=== PATIENT | male | born 1960 | race Caucasian/White ===

== ENCOUNTER 2017-05-16 11:23 | Emergency (ER) | payer MEDICAID, MEDICARE ==
[~2017-05-16] VITALS: Ht 170.2 cm; Wt 63.5 kg
[2017-05-16 11:23] VITALS: BP 178/116
[~2017-05-16 11:23] MED LIST: HYDR-3205 PO; ONDA4TAB5 PO
--- NOTE | 2017-05-16 11:30 | NUR ---
PATIENT SENT BY DIALYSIS TO ER, PT STATES "I NEED DIALYSIS", NAD NOTED, VSS, RESP EVEN AND UNLABORED, PT WAS PUT ON MONITOR, WAITING FOR MD DE LA TORRE.
[2017-05-16 12:03] LABS: BASOPHILS % (AUTO) 0.7 % (0.0-2.0); EOSINOPHILS # (AUTO) 0.1 /CMM (0.0-0.7); EOSINOPHILS % (AUTO) 2.1 % (0.0-6.0); HEMATOCRIT 41 % (39-51); HEMOGLOBIN 14.2 g/dL (13.5-17.5); LYMPHOCYTES # (AUTO) 1.5 /CMM (0.8-4.8); LYMPHOCYTES % (AUTO) 33.6 % (20.0-44.0); MEAN CORPUSCULAR HEMOGLOBIN 30 PG (26.0-33.0); MEAN CORPUSCULAR HGB CONC 35 g/dl (31.0-36.0); MEAN CORPUSCULAR VOLUME 87 fL (80-96); MONOCYTES # (AUTO) 0.3 /CMM (0.1-1.30); MONOCYTES % (AUTO) 6.4 % (2.0-12.0); NEUTROPHILS # (AUTO) 2.6 /CMM (1.8-8.9); NEUTROPHILS % (AUTO) 57.2 % (43.0-81.0); PLATELET COUNT (AUTO) 246 /CMM (150-450); RDW COEFFICIENT OF VARIATION 12.5 (11.5-15.0); WHITE BLOOD COUNT (AUTO) 4.5 K/uL (4.3-11.0)
--- NOTE | 2017-05-16 12:10 | NUR ---
BLOOD AND URINE SENT TO LAB
[2017-05-16 12:13] LABS: CALCIUM, SERUM 9.1 mg/dL (8.5-10.1); CREATININE 1.1 mg/dL (0.6-1.3); POTASSIUM 3.3 mmol/L (3.5-5.1)
[2017-05-16 12:19] LABS: BILIRUBIN,TOTAL 0.3 mg/dL (0.2-1.0)
[2017-05-16 12:46] LABS: APPEARANCE,URINE Clear (CLEAR); BILIRUBIN,URINE Negative (NEGATIVE); BLOOD, URINE Negative Ery/uL (NEGATIVE); COLOR,URINE Yellow (YELLOW); KETONES,URINE Trace (NEGATIVE); LEUKOCYTE ESTERASE ,URINE Negative (NEGATIVE); NITRITE, URINE Negative (NEGATIVE); PH,URINE 6.5 (5.0-8.0); PROTEIN,URINE Negative (NEGATIVE); UGLUCOSE Negative (NEGATIVE); UROBILINOGEN,URINE 0.2 EU/dL (0.2)
[2017-05-16 12:54] LABS: BACTERIA,URINE Few /HPF (None Seen); SQUAMOUS EPITHELIAL CELL,UR Few /HPF (None Seen)
[2017-05-16 12:58] LABS: RBC,URINE 0-2 /HPF (0-2); WBC,URINE 0-2 /HPF (0-3)
== END 2017-05-16 12:58 | disposition home or self-care (01) ==
LOC: ER 11:28
DX: Z00.00 Encounter for general adult medical examination without abnormal findings (principal); J44.9 Chronic obstructive pulmonary disease, unspecified; K40.90 Unilateral inguinal hernia, without obstruction or gangrene, not specified as recurrent; N18.9 Chronic kidney disease, unspecified; F32.9 Major depressive disorder, single episode, unspecified; F17.200 Nicotine dependence, unspecified, uncomplicated; Z99.2 Dependence on renal dialysis
CPT/HCPCS: 36415; 80053; 81001; 85025; 99284; A4606; 81000-TC; Z7610

== ENCOUNTER 2017-06-14 14:36 | Emergency (ER) | payer MEDICARE ==
[~2017-06-14] VITALS: Ht 170.2 cm; Wt 63.5 kg
[2017-06-14 14:45] VITALS: BP 145/91
== END 2017-06-14 15:11 | disposition home or self-care (01) ==
LOC: ER 14:39
DX: F32.9 Major depressive disorder, single episode, unspecified (principal); J44.9 Chronic obstructive pulmonary disease, unspecified; N18.9 Chronic kidney disease, unspecified; F17.200 Nicotine dependence, unspecified, uncomplicated
CPT/HCPCS: 99283; A4606; Z7610

== ENCOUNTER 2017-08-04 17:31 | Emergency (ER) | payer MEDICARE ==
[~2017-08-04] VITALS: Ht 170.2 cm; Wt 63.5 kg
[2017-08-04 17:31] VITALS: BP 147/87
== END 2017-08-04 18:24 | disposition home or self-care (01) ==
LOC: ER 17:32
DX: Z76.0 Encounter for issue of repeat prescription (principal); F32.9 Major depressive disorder, single episode, unspecified; J44.9 Chronic obstructive pulmonary disease, unspecified; N18.9 Chronic kidney disease, unspecified; F17.200 Nicotine dependence, unspecified, uncomplicated
CPT/HCPCS: 99283; A4606; Z7610

== ENCOUNTER 2017-08-09 11:58 | Emergency (ER) | payer MEDICARE ==
[~2017-08-09] VITALS: Ht 175.3 cm; Wt 74.8 kg
[2017-08-09 12:09] VITALS: BP 148/75
== END 2017-08-09 12:23 | disposition home or self-care (01) ==
LOC: ER 12:06
DX: F31.9 Bipolar disorder, unspecified (principal); Z76.0 Encounter for issue of repeat prescription; J44.9 Chronic obstructive pulmonary disease, unspecified; N18.9 Chronic kidney disease, unspecified; F17.200 Nicotine dependence, unspecified, uncomplicated
CPT/HCPCS: A4606; Z7610

== ENCOUNTER 2017-11-18 16:43 | Emergency (ER) | payer MEDICARE ==
[~2017-11-18] VITALS: Ht 165.1 cm; Wt 68.0 kg
[2017-11-18 16:43] VITALS: BP 119/82
== END 2017-11-18 17:25 | disposition home or self-care (01) ==
LOC: ER 16:46
DX: Z76.0 Encounter for issue of repeat prescription (principal); F32.9 Major depressive disorder, single episode, unspecified; N18.9 Chronic kidney disease, unspecified; J44.9 Chronic obstructive pulmonary disease, unspecified; F17.200 Nicotine dependence, unspecified, uncomplicated
CPT/HCPCS: 99283; A4606; Z7610

== ENCOUNTER 2018-03-13 12:36 | Emergency (ER) | payer MEDICARE, MEDICAID ==
[~2018-03-13] VITALS: Ht 168.9 cm; Wt 78.0 kg
[2018-03-13 12:47] VITALS: BP 154/98
== END 2018-03-13 12:55 | disposition home or self-care (01) ==
LOC: ER 12:37
DX: F41.9 Anxiety disorder, unspecified (principal); F31.9 Bipolar disorder, unspecified; J44.9 Chronic obstructive pulmonary disease, unspecified; N18.9 Chronic kidney disease, unspecified; F17.200 Nicotine dependence, unspecified, uncomplicated
CPT/HCPCS: A4606; Z7610

== ENCOUNTER 2018-04-16 07:55 | Emergency (ER) | payer MEDICARE, MEDICAID ==
[~2018-04-16] VITALS: Ht 170.2 cm; Wt 72.6 kg
[2018-04-16 07:55] VITALS: BP 150/74
[2018-04-16] MEDS ORDERED: LORAZEPAM 1 MG TABLET ONE (08:29)
[2018-04-16] MEDS ORDERED: LORAZEPAM 1 MG TABLET PO ONE (08:30)
== END 2018-04-16 09:44 | disposition home or self-care (01) ==
LOC: ER 07:57
DX: F41.9 Anxiety disorder, unspecified (principal); J44.9 Chronic obstructive pulmonary disease, unspecified; N18.9 Chronic kidney disease, unspecified; G89.29 Other chronic pain; M54.5 Low back pain; F32.9 Major depressive disorder, single episode, unspecified; M41.9 Scoliosis, unspecified; F17.200 Nicotine dependence, unspecified, uncomplicated; Z76.0 Encounter for issue of repeat prescription

== ENCOUNTER 2019-01-19 15:18 | Inpatient (IN) | payer BC, MEDICAID, MEDICARE, OTHER ==
[~2019-01-19] VITALS: Ht 170.2 cm; Wt 67.1 kg
--- NOTE | 2019-01-19 15:30 | NUR ---
C/O CHRONIC NECK PAIN, UNABLE TO FILL UP HIS NORCO PRESCRIPTION MAKING HIM FEEL DEPRESSED AND SUICIDAL, PLAN IS TO USE A KNIFE. SITTER AT BEDSIDE.
--- NOTE | 2019-01-19 15:31 | NUR ---
TO ER BED 7,1:1 SITTER,SUICIDE PRECAUTION.
--- NOTE | 2019-01-19 15:32 | NUR ---
CONTRABAND/BELONGINGS REMOVED,GOWNED,SECURITY CALLED FOR WANDING
--- NOTE | 2019-01-19 15:47 | NUR ---
SECURITY AT BEDSIDE FOR WANDING.
[2019-01-19 15:55] LABS: BASOPHILS # (AUTO) 0.1 /CMM (0.0-0.2); BASOPHILS % (AUTO) 0.9 % (0.0-2.0); EOSINOPHILS % (AUTO) 2.9 % (0.0-6.0); HEMATOCRIT 45 % (39-51); HEMOGLOBIN 15.5 g/dL (13.5-17.5); LYMPHOCYTES # (AUTO) 1.9 /CMM (0.8-4.8); LYMPHOCYTES % (AUTO) 25.1 % (20.0-44.0); MEAN CORPUSCULAR HGB CONC 34 g/dl (31.0-36.0); MEAN CORPUSCULAR VOLUME 88 fL (80-96); MONOCYTES # (AUTO) 0.5 /CMM (0.1-1.30); MONOCYTES % (AUTO) 6.1 % (2.0-12.0); NEUTROPHILS # (AUTO) 4.8 /CMM (1.8-8.9); PLATELET COUNT (AUTO) 264 /CMM (150-450); WHITE BLOOD COUNT (AUTO) 7.4 K/uL (4.3-11.0)
[2019-01-19 15:59] LABS: APPEARANCE,URINE Clear (CLEAR); BILIRUBIN,URINE Negative (NEGATIVE); BLOOD, URINE Negative Ery/uL (NEGATIVE); COLOR,URINE Yellow (YELLOW); KETONES,URINE Negative (NEGATIVE); LEUKOCYTE ESTERASE ,URINE Negative (NEGATIVE); NITRITE, URINE Negative (NEGATIVE); PH,URINE 5.5 (5.0-8.0); PROTEIN,URINE Negative (NEGATIVE); UGLUCOSE Negative (NEGATIVE); UROBILINOGEN,URINE 0.2 EU/dL (0.2)
[2019-01-19] MEDS ORDERED: GABA-534 PO (16:02)
[2019-01-19] MEDS ORDERED: SERT100T PO (16:02)
[2019-01-19] MEDS ORDERED: HYDR-4384 PO (16:02)
[2019-01-19 16:12] LABS: ALANINE AMINOTRANSFERASE 30 U/L (12-78); ALBUMIN 4.3 g/dL (3.4-5.0); ALCOHOL, BLOOD < 3 mg/dL (0-0); ALKALINE PHOSPHATASE 111 U/L (46-116); ASPARTATE AMINOTRANSFERASE 31 U/L (15-37); BILIRUBIN,DIRECT 0.1 mg/dL (0.0-0.2); BILIRUBIN,TOTAL 0.6 mg/dL (0.2-1.0); CALCIUM, SERUM 9.1 mg/dL (8.5-10.1); CARBON DIOXIDE 25 mmol/L (21-32); CHLORIDE 103 mmol/L (98-107); CREATININE 0.9 mg/dL (0.6-1.3); GLUCOSE 98 mg/dL (74-106); POTASSIUM 3.9 mmol/L (3.5-5.1); SODIUM SERUM 137 mmol/L (136-145); TOTAL PROTEIN, SERUM 7.4 g/dL (6.4-8.2); UREA NITROGEN, BLOOD 17 mg/dL (7-18)
[2019-01-19 16:19] LABS: SALICYLATE 2.7 mg/dL (2.8-20.0)
--- NOTE | 2019-01-19 17:12 | NUR ---
RAE PLAYGROUND AIDE AT BEDSIDE FOR EVAL.
--- NOTE | 2019-01-19 17:19 | NUR ---
REPORT GIVEN TO DAVID OROZCO FOR CORINNE.
--- NOTE | 2019-01-19 17:46 | NUR ---
PATIENT TRANSFERRED TO [facility]. IN STABLE CONDITION.
[2019-01-19] MEDS ORDERED: BLOOD SUGAR DIAGNOSTIC 1 EACH STRIP IN ONE (19:00)
[2019-01-19] MEDS ORDERED: MAGNESIUM HYDROXIDE 30 ML UDC PO PRN (19:00)
[2019-01-19] MEDS ORDERED: ACETAMINOPHEN 325 MG TABLET PO PRN (19:00)
[2019-01-19] MEDS: GABAPENTIN 300 MG CAPSULE PO SCH (19:28)
[2019-01-19] MEDS: HYDROCODONE/APAP 5/325MG 1 EACH TABLET PO PRN (19:29)
--- NOTE | 2019-01-19 20:00 | NUR ---
GPS CABIN SERVICE AGENT NOTES: ADMITTED A 58YO MALE FROM HOME ON 5150 HOLD FOR DANGER TO SELF. PER HOLD PATIENT HAS BEEN SUICIDAL THE PAST TWO-THREE DAYS. HE HAS HISTORY OF DEPRESSION AND ADMITS TO BEING SEVERELY DEPRESSED. IT IS ALSO STATED IN THE HOLD THAT THE PATIENT HAS A LOT OF HEAD, NECK AND BACK PAIN. HE ALSO REVEALED AN OLD SCAR ON HIS LEFT WRIST FROM A PREVIOUS SUICIDE ATTEMPT. PATIENT CAME INTO THE UNIT DURING DAY SHIFT ABOUT SHIFT CHANGE TIME. UPON FACE TO FACE ASSESSMENT, PATIENT PRESENTS ALERT AND ORIENTED X4, AMBULATORY, ADMITS TO FEELING DEPRESSED, HE IS ALSO NOTED TO BE ANXIOUS EVIDENCE BY THE SHAKING OF HIS HANDS AND NOT BEING ABLE TO STAY STILL. PATIENT HAS COMPLAINS OF PAIN ON HIS UPPER AND LOWER BACK.- PER PATIENT HE HAS HAD THIS PAIN FOR A LONG TIME ALREADY. MEDICATED PATIENT WITH NORCO ORDERED. AN HOUR AFTER PATIENT REQUESTED FOR HIS ATIVAN MEDICATION-GIVEN ORDERED. REALITY ORIENTATION DONE. PATIENT ORIENTED TO STAFF, UNIT POLICIES, DOCTORS AND CARE PLAN. Q15 MIN CHECKS INITIATED. PATIENT DENIES ANY SUICIDAL IDEATIONS, THOUGHTS OR PLANS THIS TIME. HE DENIES AUDITORY AND VISUAL HALLUCINATIONS. PATIENT AGREED TO CONTRACT FOR SAFETY. HE WAS FURTHER ENCOURAGED TO VERBALIZE ANY FEELINGS OR CONCERNS, OR ANY THOUGHTS OF SELF HARM TO PULVERIZING AND SIFTING OPERATOR AT ANYTIME. SKIN AND BODY ASSESSMENT DONE-,PATIENT IS CLEAR, NO ACTIVE WOUNDS NOTED THIS TIME. PROVIDED PATIENT WITH TOILETRIES AND CARE PACKET.PATIENTS RIGHTS HANDBOOK PROVIDED. GUIDE TO PRESCRIPTION MEDICATIONS HANDBOOK PROVIDED. PATIENT WAS SEEN BY DIAMANTE SANTOS IN THE UNIT. DR. PATEL IS THE PSYCH DR FOR THIS PATIENT. WILL MONITOR PATIENT FOR MOD, SAFETY AND BEHAVIOR.
[2019-01-19] MEDS: LORAZEPAM 0.5 MG TABLET PO PRN (20:35)
--- NOTE | 2019-01-19 20:36 | NUR ---
GPS RN NOTES: PATIENT COMPLAINED OF BEING ANXIOUS AND NERVOUS AT THIS TIME. NOTED THAT PATIENT CANNOT REALLY STAY STILL. ATIVAN 1 MG GIVEN ORALLY ORDERED. BP CHECKED 121/80 HR-70. WILL CONTINUE TO MONITOR PATIENT.
[2019-01-19 20:42] VITALS: BP 130/94
[2019-01-19] MEDS: TEMAZEPAM 7.5 MG CAPSULE PO PRN (21:35)
[2019-01-20] MEDS: HYDROCODONE/APAP 5/325MG 1 EACH TABLET PO PRN ×3 (01:20→17:59)
--- NOTE | 2019-01-20 01:21 | NUR ---
RN NOTES COMPLAINED OF TERRIBLE HEADACHE - NORCO 5/325MG PO GIVEN ORDERED V/S STABLE
[2019-01-20] MEDS: LORAZEPAM 0.5 MG TABLET PO PRN ×3 (02:40→16:51)
[2019-01-20 07:36] LABS: ALBUMIN 3.5 g/dL (3.4-5.0); BILIRUBIN,TOTAL 0.4 mg/dL (0.2-1.0); CALCIUM, SERUM 8.3 mg/dL (8.5-10.1); CREATININE 0.9 mg/dL (0.6-1.3); POTASSIUM 3.9 mmol/L (3.5-5.1); TOTAL PROTEIN, SERUM 6.3 g/dL (6.4-8.2)
[2019-01-20 07:37] LABS: CHOLESTEROL 130 mg/dL (<200); HDL CHOLESTEROL 29 mg/dL (40-60); LDL 84 mg/dL (0-99); TRIGLYCERIDES 99 mg/dL (30-150)
[2019-01-20 08:00] VITALS: BP 124/72
[2019-01-20] MEDS: GABAPENTIN 300 MG CAPSULE PO SCH ×2 (08:43→16:51)
[2019-01-20] MEDS ORDERED: Medication Not On Formulary EA (Sertraline Hcl (Zoloft) 100 MG) PO SCH (09:00)
--- NOTE | 2019-01-20 10:05 | NUR ---
RN NOTE: PATIENT C/O ANXIETY, PRN ATIVAN GIVEN.
[2019-01-20] MEDS: oxyCODONE/APAP (5/325 MG) 1 UDTAB TABLET PO PRN (12:47)
--- NOTE | 2019-01-20 12:52 | NUR ---
RN NOTE: PATIENT C/O 8/10 PAIN; PRN PERCOCET GIVEN.
[2019-01-20 16:00] VITALS: BP 111/82
--- NOTE | 2019-01-20 16:52 | NUR ---
RN NOTE: PATIENT C/O ANXIETY. PRN ATIVAN GIVEN.
--- NOTE | 2019-01-20 17:59 | NUR ---
RN NOTE: PATIENT C/O 8/10 PAIN. PRN NORCO GIVEN.
--- NOTE | 2019-01-20 19:25 | NUR ---
GPS/RN OPENING NOTES RECEIVED PATIENT I BED, RESTING COMFORTABLY BUT ABLE TO AROUSE. AND CAN AMBULATE AND VERBALIZE NEEDS, PARTICIPATIVE AND ABLE TO COMMUNICATE, REPORTED AND REQUESTED MEDICATION FOR SLEEP, PREFER TO TAKE IT EARLIER AFTER HAVING SOME ORANGE JUICE. CALM BUT WITHRAWN . RECEIVED ENDORSEMENT FROM AM RN FOR CORINNE.
[2019-01-20 20:00] VITALS: BP 119/80
[2019-01-20 20:04] VITALS: BP 119/80
[2019-01-20] MEDS: TEMAZEPAM 7.5 MG CAPSULE PO PRN (20:15)
--- NOTE | 2019-01-20 20:59 | NUR ---
GPS/RN NOTES DR PATEL AT BEDSIDE, MAKING ROUNDS AND ATTENDING TO PATIENT AT THIS TIME.
--- NOTE | 2019-01-20 21:38 | NUR ---
GPS/RN NOTES PATIENT WAS SEEN BY DR PATEL AND REPORTED THAT HE WANT MEDICATION TO HELP HIM SLEEP. RESTORIL MAY NOT BE EFFECTIVE,.PATIENT AWAKE AND WILL CONTACT PHARMACY FOR VERIFICATION OF ORDER.
[2019-01-20] MEDS: TRAZODONE 50 MG TABLET PO SCH (21:52)
[2019-01-21 08:00] VITALS: BP 126/82
[2019-01-21] MEDS: GABAPENTIN 300 MG CAPSULE PO SCH ×2 (08:11→16:39)
[2019-01-21] MEDS: SERTRALINE HCL 50 MG TABLET PO SCH (08:11)
[2019-01-21] MEDS: oxyCODONE/APAP (5/325 MG) 1 UDTAB TABLET PO PRN (08:40)
--- NOTE | 2019-01-21 09:40 | NUR ---
INITIAL DISCHARGE NOTE: Patient is currently homeless and wishes to be discharged to a board and care in [place]. Pt was unable to provide SW with the contact information to the board and care but stated that he would look for it. SW will help form a safe and proper discharge in collaboration with MD.
[2019-01-21] MEDS: LORAZEPAM 0.5 MG TABLET PO PRN ×2 (10:41→18:01)
[2019-01-21 16:00] VITALS: BP 119/94
[2019-01-21] MEDS: HYDROCODONE/APAP 5/325MG 1 EACH TABLET PO PRN (16:39)
--- NOTE | 2019-01-21 17:32 | NUR ---
GPS NOTE THE PATIENT DENIES SI/HI AND DENIES VISUAL/AUDITORY HALLUCINATIONS. IN ROOM AIR AND DENIES SOB. RESPIRATION REGULAR AND UNLABORED. DENIES PAIN AT THIS TIME. THE PATIENT IS MEDICATION COMPLIANT. SAFETY CHECKS DONE. WILL CONTINUE TO MONITOR THE PATIENT.
--- NOTE | 2019-01-21 19:30 | NUR ---
GPS RN OPENING NOTES RECEIVED PATIENT IN BED, RESTING COMFORTABLY BUT ABLE TO AROUSE. A/O X3.ABLE TO AMBULATE AND VERBALIZE NEEDS,, REPORTED AND REQUESTED MEDICATION FOR SLEEP, PREFER TO TAKE IT EARLIER. CALM BUT WITHDRAWN. RESPIRATIONS ARE EVEN AND UNLABORED, NO SOB NOTED, DENIES PAIN AT THIS TIME. NO APPARENT DISTRESS. ID BAND ON, ASSESSED ENVIRONMENT FOR CONTRABAND AND SAFETY. WILL CONTINUE TO MONITOR Q15 MINS FOR SAFETY AND BEHAVIOR
[2019-01-21] MEDS: TEMAZEPAM 7.5 MG CAPSULE PO PRN (20:17)
[2019-01-21 20:51] VITALS: BP 117/66
[2019-01-21] MEDS: TRAZODONE 50 MG TABLET PO SCH (21:42)
[2019-01-22 08:00] VITALS: BP 108/68
[2019-01-22] MEDS: GABAPENTIN 300 MG CAPSULE PO SCH ×2 (08:23→16:46)
[2019-01-22] MEDS: SERTRALINE HCL 50 MG TABLET PO SCH (08:23)
[2019-01-22] MEDS: oxyCODONE/APAP (5/325 MG) 1 UDTAB TABLET PO PRN (08:24)
[2019-01-22] MEDS: LORAZEPAM 0.5 MG TABLET PO PRN ×2 (11:19→19:51)
[2019-01-22 16:00] VITALS: BP 133/91
[2019-01-22] MEDS: HYDROCODONE/APAP 5/325MG 1 EACH TABLET PO PRN (16:46)
[2019-01-22 20:03] VITALS: BP 106/69
[2019-01-22] MEDS: TRAZODONE 50 MG TABLET PO SCH (21:08)
[2019-01-23 08:00] VITALS: BP 106/75
[2019-01-23] MEDS: SERTRALINE HCL 50 MG TABLET PO SCH (08:18)
[2019-01-23] MEDS: GABAPENTIN 300 MG CAPSULE PO SCH ×2 (08:18→16:47)
[2019-01-23] MEDS: oxyCODONE/APAP (5/325 MG) 1 UDTAB TABLET PO PRN ×2 (08:20→21:19)
--- NOTE | 2019-01-23 11:27 | NUR ---
PATIENT ASKING TO INCREASE ATIVAN DOSE. SAYS HE HAS BEEN THINKING ABOUT HURTING HIMSELF IN THE PAST. DOES NOT WANT TO HURT HIMSELF AT THIS TIME. PATIENT UP TO GROUP FREQUENTLY INTERACTING AND ASKING FOR NEEDED MEDICATIONS, WHAT TIME HE IS ABLE TO GET THEM. SITA Fuentes RN
--- NOTE | 2019-01-23 11:45 | NUR ---
Patient says he feels most down about his estranged that he says lives in [place]. He says she is an registered nurse. Patient requesting further evaluation and treatment for his depression and anxiety. Does not want to leave now at this time. Says maybe when he leaves he will go to [place] to try to find his estranged . Sukhi Fuentes RN
[2019-01-23] MEDS: LORAZEPAM 0.5 MG TABLET PO PRN (12:14)
[2019-01-23 16:00] VITALS: BP 102/67
[2019-01-23 19:51] VITALS: BP 119/80
[2019-01-23] MEDS: TRAZODONE 50 MG TABLET PO SCH (21:16)
[2019-01-23] MEDS: TEMAZEPAM 7.5 MG CAPSULE PO PRN (21:18)
[2019-01-24 08:00] VITALS: BP 110/78
[2019-01-24] MEDS: SERTRALINE HCL 50 MG TABLET PO SCH (08:13)
[2019-01-24] MEDS: GABAPENTIN 300 MG CAPSULE PO SCH ×2 (08:13→17:22)
[2019-01-24] MEDS: HYDROCODONE/APAP 5/325MG 1 EACH TABLET PO PRN (08:14)
--- NOTE | 2019-01-24 08:17 | NUR ---
RN NOTE- PT C/O BACK PAIN 8-10. PRN NORCO GIVEN
--- NOTE | 2019-01-24 09:06 | NUR ---
UR NOTE: JUSTO FAXED CLINICALS TO [facility] AND TO [facility] [phone].
[2019-01-24] MEDS: oxyCODONE/APAP (5/325 MG) 1 UDTAB TABLET PO PRN (11:35)
--- NOTE | 2019-01-24 11:35 | NUR ---
RN NOTE- PT W C/O PAIN 9-10 TO LOWER BACK. MEDICATED W PRN OXYCODONE AT THIS TIME.
--- NOTE | 2019-01-24 11:55 | NUR ---
UR NOTE: JUSTO 5150/5250 HOLD to MELE TELETYPE ADJUSTER at [facility] [phone] ext: [phone] FAX: [phone].
--- NOTE | 2019-01-24 15:00 | NUR ---
GROUP NOTE: SW encouraged pt to participate in group on this present day discussing "gaining insight." Pt stated that he was not feeling well and that he did not want to participate in a group setting. Pt stated that he was still having thoughts of suicide. SW monitored thoughts of suicide and pt reported that he did not have a plan but that he was constantly thinking that his life would be better if he was due to his current living situation. SW informed him that she would be informing psychiatrist so that his depression medication can be adjusted.
[2019-01-24] MEDS: LORAZEPAM 0.5 MG TABLET PO PRN (15:17)
--- NOTE | 2019-01-24 15:19 | NUR ---
RN NOTE- PT W C/O ANXIETY. RESTLESSNESS. ATIVAN PRN GIVEN.
[2019-01-24 16:00] VITALS: BP 103/69
[2019-01-24 20:16] VITALS: BP 112/69
[2019-01-24] MEDS: TRAZODONE 50 MG TABLET PO SCH (21:05)
--- NOTE | 2019-01-24 23:28 | NUR ---
pt recieved laying in bed .pt is depressed and is asks for some pain med constantly.gait is stable . pt will request for pain medication later .pt is on 5250 14days hold
[2019-01-25 08:00] VITALS: BP 120/86
--- NOTE | 2019-01-25 08:27 | NUR ---
UR NOTE: JUSTO left a clinical review via voicemail with MELE MOLDED RUBBER GOODS CUTTER at [facility] [phone] ext: [phone]
[2019-01-25] MEDS: GABAPENTIN 300 MG CAPSULE PO SCH ×2 (08:35→16:16)
[2019-01-25] MEDS: SERTRALINE HCL 50 MG TABLET PO SCH (08:35)
[2019-01-25] MEDS: oxyCODONE/APAP (5/325 MG) 1 UDTAB TABLET PO PRN ×2 (09:15→18:01)
[2019-01-25] MEDS: LORAZEPAM 0.5 MG TABLET PO PRN (10:43)
--- NOTE | 2019-01-25 14:50 | NUR ---
GROUP NOTE: SW encouraged pt to participate in group on this present day discussing "family support." Pt reported that he feels sad every time he thinks about his family due to him not having a good relationship with his brother and his brother living so far away and him not being able to count on him for support. Pt isolates in his room, SW encouraged pt to go out to the activity room and pt stated that he wanted to stay in his room.
--- NOTE | 2019-01-25 15:02 | NUR ---
INTERVENTION: SW discussed pts discharge plan, SW explained to pt that he is unable to be discharged to a SNF due to his insurance not covering SNF placement. SW informed pt that his two options are board and care or if he is able to provide SW with the address he was suppose to be moving to in [place]. Pt stated that he needs his phone to pull up the address to the board and care he has already placed a deposit to. SW stated that once she has discharge order from psychiatrist she will assist him with locating the address on his phone.
[2019-01-25 16:00] VITALS: BP 131/78
[2019-01-25 20:00] VITALS: BP 126/78
[2019-01-25 20:04] VITALS: BP 126/78
[2019-01-25] MEDS: TRAZODONE 50 MG TABLET PO SCH (21:05)
[2019-01-25] MEDS: TEMAZEPAM 7.5 MG CAPSULE PO PRN (21:44)
--- NOTE | 2019-01-25 21:45 | NUR ---
GPS RN notes Administered Restoril 7.5 mg/2 caps/PO as ordered for sleeping per Pt request. Instructed to call. Safety precautions is maintained. Will continue to monitor Q 15 mins checks.
[2019-01-26 08:00] VITALS: BP 110/79
[2019-01-26] MEDS: GABAPENTIN 300 MG CAPSULE PO SCH ×2 (08:43→16:34)
[2019-01-26] MEDS: SERTRALINE HCL 50 MG TABLET PO SCH (08:43)
[2019-01-26] MEDS: HYDROCODONE/APAP 5/325MG 1 EACH TABLET PO PRN ×2 (08:48→20:01)
--- NOTE | 2019-01-26 08:51 | NUR ---
RN NOTE: PATIENT C/O BACK AND NECK PAIN 10/20. ADMINISTERED PRN NORCO.
--- NOTE | 2019-01-26 10:49 | NUR ---
UR NOTE: JUSTO FAXED CLINICALS TO [facility] AND TO [facility] [phone].
[2019-01-26] MEDS: oxyCODONE/APAP (5/325 MG) 1 UDTAB TABLET PO PRN (13:22)
[2019-01-26 16:00] VITALS: BP 121/88
[2019-01-26 20:08] VITALS: BP 119/85
[2019-01-26] MEDS: TRAZODONE 50 MG TABLET PO SCH (21:18)
[2019-01-26] MEDS: TEMAZEPAM 7.5 MG CAPSULE PO PRN (23:36)
[2019-01-27] MEDS: HYDROCODONE/APAP 5/325MG 1 EACH TABLET PO PRN ×2 (07:51→16:36)
[2019-01-27 08:00] VITALS: BP 112/76
[2019-01-27] MEDS: GABAPENTIN 300 MG CAPSULE PO SCH ×2 (08:00→16:30)
[2019-01-27] MEDS: SERTRALINE HCL 50 MG TABLET PO SCH (08:42)
[2019-01-27] MEDS: MAG HYDROX/AL HYDROX/SIMETH 30 ML UDC PO PRN (09:26)
--- NOTE | 2019-01-27 09:27 | NUR ---
RN NOTE: PATIENT C/O INDIGESTION. ADMINISTERED PRN MAALOX.
--- NOTE | 2019-01-27 10:58 | NUR ---
UR NOTE: SW received a call from Shelbi aftercare coordinator at [facility] [phone] ext:[phone] stating that she will be providing pt with aftercare appointments once he is discharged.
--- NOTE | 2019-01-27 11:43 | NUR ---
INTERVENTION: SW discussed pts discharge plan, pt stated that he is unsure if he is able to return to the board and care in [place] and stated that he is still not stable for discharge. SW offered pt Independent living placement options and pt stated that he would be interested however he does not have access to his social security income as he states he has a payee and he does not know his contact info. SW will continue to plan for a safe and proper discharge.
[2019-01-27] MEDS: LORAZEPAM 0.5 MG TABLET PO PRN (12:27)
--- NOTE | 2019-01-27 12:29 | NUR ---
RN NOTE: PATIENT C/O FEELING ANXIOUS. ADMINISTERED PRN ATIVAN.
[2019-01-27] MEDS: oxyCODONE/APAP (5/325 MG) 1 UDTAB TABLET PO PRN (14:09)
--- NOTE | 2019-01-27 14:09 | NUR ---
RN NOTE: PATIENT C/O 8/10 BACK PAIN. ADMINISTERED PRN PERCOCET.
--- NOTE | 2019-01-27 15:45 | NUR ---
SW contacted [facility] ([facility]) [address] [address] where pt was discharged from on 01/12/19 and received collateral information. Per Larry marketing officer pt was discharged to [place] [address] .
[2019-01-27 16:00] VITALS: BP 132/66
--- NOTE | 2019-01-27 16:30 | NUR ---
JUSTO spoke with Mark, sharepoint administrator at [address] who confirmed pt is a resident at the facility and is able to return back. Mark stated that he had been looking for pt as he left and did not know where he had gone to. JUSTO informed him that pt will be discharged on Thursday01/29/19 via public transportation and Mark agreed.
[2019-01-27 20:33] VITALS: BP 92/63
[2019-01-27] MEDS: TRAZODONE 50 MG TABLET PO SCH (21:15)
[2019-01-28] MEDS: HYDROCODONE/APAP 5/325MG 1 EACH TABLET PO PRN ×3 (06:55→21:16)
--- NOTE | 2019-01-28 06:56 | NUR ---
RN NOTES PATIENT C/O PAIN ON LOWER BACK, 11/20. REQUESTED FOR PAIN MEDICATION. NORCO 5/325 GIVEN ORDERED
[2019-01-28 08:00] VITALS: BP 112/77
[2019-01-28] MEDS: SERTRALINE HCL 50 MG TABLET PO SCH (09:20)
[2019-01-28] MEDS: GABAPENTIN 300 MG CAPSULE PO SCH ×2 (09:23→16:58)
[2019-01-28] MEDS: MAG HYDROX/AL HYDROX/SIMETH 30 ML UDC PO PRN (09:39)
--- NOTE | 2019-01-28 09:40 | NUR ---
GPS/RN-NOTES PATIENT REQUESTING MAALOX FOR INDIGESTION. MAALOX 30 ML GIVEN PRN ORDER.
[2019-01-28] MEDS: LORAZEPAM 0.5 MG TABLET PO PRN (10:38)
--- NOTE | 2019-01-28 10:39 | NUR ---
GPS/RN-NOTES PATIENT REQUESTING ATIVAN. STATED" I'M VERY ANXIOUS I NEED MY ATIVAN". ATIVAN 1MG P.O GIVEN PRN ORDER. WILL CONT. MONITORING FOR SAFETY AND BEHAVIOR.
--- NOTE | 2019-01-28 13:35 | NUR ---
UR NOTE: JUSTO contacted Shelbi aftercare coordinator at [facility] [phone] ext:[phone] and inform her pt will be discharged tomorrow Thursday01/29/19. Shelbi stated she will work on aftercare appointments for pt and call JUSTO back with information.
--- NOTE | 2019-01-28 13:45 | NUR ---
DISCHARGE NOTE: Pt will be discharged on Thursday01/29/19 at 11:00am via public transportation (TAP CARD) to [address] [facility] [address] [facility] . Pt has no family to notify. Pts mood is euthymic with congruent affect. Pt denied suicidal/homicidal ideation and denied visual/auditory hallucinations. Pt will follow up with [facility] Address: [address] [place] [address] on Thursday01/31/19 before 4:00pm and pt will also follow up with Materials Management Manager: Dr. Dr. Kwadwo Roa Address: [address], [place] [address] . The multidisciplinary exit care form was done, printed, signed, and given to the patient. Addendum: 01/28/19 at 1425 by JUANA KEMP JUSTO received a call from Shelbi aftercare coordinator at [facility] [phone] ext:[phone] providing pt with aftercare appointments. Pt has a follow up appointment on 02/04/19 at 8:30am with Kaylie Chen LCSW and a follow up appointment on 02/25/19 at 8:30am with Al Richards NP [address] [facility] [address] [facility] [address] .
--- NOTE | 2019-01-28 15:06 | NUR ---
GPS/RN-NOTES PATIENT C/O 9/10 LOWER BACK PAIN, NORCO 5/325MG P.O GIVEN PRN ORDER. WILL CONT. MONITORING FOR SAFETY.
--- NOTE | 2019-01-28 15:14 | NUR ---
GROUP NOTE: SW prompted pt to attend group on 01/28/19 at 2:30pm discussing goal setting for while they are in the hospital and after discharge, but pt was sleeping and not easily aroused.
[2019-01-28 16:00] VITALS: BP 107/76
[2019-01-28 20:00] VITALS: BP 116/66
[2019-01-28 20:41] VITALS: BP 116/66
[2019-01-28] MEDS: TRAZODONE 50 MG TABLET PO SCH (21:03)
[2019-01-28] MEDS: TEMAZEPAM 7.5 MG CAPSULE PO PRN (21:03)
[2019-01-29] MEDS: HYDROCODONE/APAP 5/325MG 1 EACH TABLET PO PRN (04:56)
[2019-01-29 08:00] VITALS: BP 130/86
[2019-01-29] MEDS: SERTRALINE HCL 50 MG TABLET PO SCH (08:02)
[2019-01-29] MEDS: GABAPENTIN 300 MG CAPSULE PO SCH (08:02)
[2019-01-29] MEDS: LORAZEPAM 0.5 MG TABLET PO PRN (08:02)
--- NOTE | 2019-01-29 08:07 | NUR ---
RN NOTE: ATIVAN ADMINISTERED FOR ANXIETY
[2019-01-29] MEDS: MAG HYDROX/AL HYDROX/SIMETH 30 ML UDC PO PRN (08:08)
--- NOTE | 2019-01-29 08:09 | NUR ---
GPS RN NOTE: MAALOX REQUESTED AND ADMINISTERED FOR INDIGESTION
--- NOTE | 2019-01-29 09:05 | NUR ---
DR. PATEL GAVE AN ORDER TO D/C HOLD AND D/C TO [facility] AND TO FOLLOW UP WITH PSYCH AND MEDICAL DOCTORS. SPOKE TO TASHI BREWER OVER THE BOARD AND CARE AND SAID THEY WILL ACCEPT HIM TODAY AND HE WILL CALL AN UBER FOR HIS TRANSPORTATION. PER PT. NO FAMILY TO NOTIFY FOR HIS DISCHARGE.
--- NOTE | 2019-01-29 10:51 | NUR ---
PT. IS FOR DISCHARGE TO [place] [address] [facility]. PRESCRIPTIONS FAXED TO [facility] AT [phone].
--- NOTE | 2019-01-29 12:27 | NUR ---
GPS/RN PT WAS ACCOMPANIED BY FLATTENING PRESS OPERATOR TO THE MAIN LOBBY AND LEFT VIA UBER ARRANGED BY THE FACILITY. NO SI OR HI AT THE TIME OF DISCHARGE. PT IS AMBULATORY, VSS, NO APPARENT DISTRESS NOTED. PROPERTY RETURNED , ID BAND REMOVED, EXIT CARE, PRESCRIPTIONS AND TEACHING PROVIDED AND UNDERSTOOD. PRESCRIPTIONS FAXED TO THE PHARMACY WELL. Addendum: 01/29/19 at 1240 by VICKIE LEYVA RN THE PHON E # OF [facility] [employer]PORTER IS [phone]
== END 2019-01-29 12:25 | disposition home or self-care (01) | DRG 885 ==
LOC: ER 15:26 → GPS 17:49
PROVIDERS: ADMIT Psychiatry & Neurology Psychiatry; ATTEND Nurse Practitioner Acute Care
DX: F33.9 Major depressive disorder, recurrent, unspecified (principal); R45.851 Suicidal ideations; F29 Unspecified psychosis not due to a substance or known physiological condition; J44.9 Chronic obstructive pulmonary disease, unspecified; F17.210 Nicotine dependence, cigarettes, uncomplicated; G89.4 Chronic pain syndrome; M41.9 Scoliosis, unspecified; F41.9 Anxiety disorder, unspecified; G62.9 Polyneuropathy, unspecified; M54.5 Low back pain
CPT/HCPCS: 36415; 80048-TC; 80053-TC; 80061-TC; 80076-TC; 80305; 81000-TC; 82962-TC; 85025-TC; 87081-TC; G0480

== ENCOUNTER 2019-05-05 12:19 | Inpatient (IN) | payer OTHER ==
[~2019-05-05] VITALS: Ht 182.9 cm; Wt 70.8 kg
[~2019-05-05 12:19] MED LIST changes: +GABA-534 PO; -HYDR-3205 PO; +HYDR-4384 PO; -ONDA4TAB5 PO; +SERT100T PO
--- NOTE | 2019-05-05 12:35 | NUR ---
PT CAME INTO THE ED C/O SI W/ NO SPECIFIC PLAN. SAFETY PRECAUTIONS IMPLEMENTED. SITTER AT BEDSIDE. NO ACUTE DISTRESS NOTED. CONNECTED TO THE CASUALTY CLAIM ADJUSTER AND POX
[2019-05-05 13:11] LABS: BASOPHILS % (AUTO) 0.8 % (0.0-2.0); EOSINOPHILS % (AUTO) 2.2 % (0.0-6.0); HEMATOCRIT 41 % (39-51); HEMOGLOBIN 14.1 g/dL (13.5-17.5); LYMPHOCYTES # (AUTO) 2.2 /CMM (0.8-4.8); LYMPHOCYTES % (AUTO) 42.1 % (20.0-44.0); MEAN CORPUSCULAR HGB CONC 35 g/dl (31.0-36.0); MEAN CORPUSCULAR VOLUME 88 fL (80-96); MONOCYTES # (AUTO) 0.3 /CMM (0.1-1.30); MONOCYTES % (AUTO) 6.2 % (2.0-12.0); NEUTROPHILS # (AUTO) 2.5 /CMM (1.8-8.9); NEUTROPHILS % (AUTO) 48.7 % (43.0-81.0); PLATELET COUNT (AUTO) 285 /CMM (150-450); RED BLOOD CELL COUNT(AUTO) 4.65 MIL/uL (4.5-6.0); WHITE BLOOD COUNT (AUTO) 5.2 K/uL (4.3-11.0)
[2019-05-05 13:18] LABS: CALCIUM, SERUM 9.4 mg/dL (8.5-10.1); CARBON DIOXIDE 32 mmol/L (21-32); CHLORIDE 106 mmol/L (98-107); CREATININE 1.1 mg/dL (0.6-1.3); GLUCOSE 109 mg/dL (74-106); SODIUM SERUM 141 mmol/L (136-145); UREA NITROGEN, BLOOD 12 mg/dL (7-18)
[2019-05-05 13:23] LABS: ACETAMINOPHEN 0 ug/ml (10-30); ALANINE AMINOTRANSFERASE 26 U/L (12-78); ALBUMIN 3.7 g/dL (3.4-5.0); ALCOHOL, BLOOD < 3 mg/dL (0-0); ALKALINE PHOSPHATASE 94 U/L (46-116); ASPARTATE AMINOTRANSFERASE 29 U/L (15-37); BILIRUBIN,DIRECT 0.1 mg/dL (0.0-0.2); BILIRUBIN,TOTAL 0.7 mg/dL (0.2-1.0); SALICYLATE 0.5 mg/dL (2.8-20.0); TOTAL PROTEIN, SERUM 6.5 g/dL (6.4-8.2)
--- NOTE | 2019-05-05 14:50 | NUR ---
Patient is resting comfortably in bed with eyes closed. Easily aroused. VSS
[2019-05-05 15:07] LABS: APPEARANCE,URINE Cloudy (CLEAR); BILIRUBIN,URINE SMALL (NEGATIVE); BLOOD, URINE Negative Ery/uL (NEGATIVE); COLOR,URINE Yellow (YELLOW); KETONES,URINE Trace (NEGATIVE); LEUKOCYTE ESTERASE ,URINE Negative (NEGATIVE); NITRITE, URINE Negative (NEGATIVE); PROTEIN,URINE 30 mg/dl (NEGATIVE); UGLUCOSE Negative (NEGATIVE); UROBILINOGEN,URINE 0.2 EU/dL (0.2)
[2019-05-05 15:24] LABS: BACTERIA,URINE Few /HPF (None Seen); RBC,URINE 0-2 /HPF (0-2); SQUAMOUS EPITHELIAL CELL,UR Few /HPF (None Seen); WBC,URINE 0-2 /HPF (0-3)
[2019-05-05 15:25] LABS: MUCUS,URINE Many /LPF (None Seen)
--- NOTE | 2019-05-05 16:12 | NUR ---
CALLED [facility] [phone] LEFT [facility] TO CALL US.
--- NOTE | 2019-05-05 16:17 | NUR ---
GOT BED 212-A
--- NOTE | 2019-05-05 16:24 | NUR ---
DANA LIU [phone]
[2019-05-05] MEDS ORDERED: ATEN50TA PO (18:00)
[2019-05-05] MEDS ORDERED: DEXT20TA6 PO (18:00)
--- NOTE | 2019-05-05 20:22 | NUR ---
CALLED TO GIVE REPORT, NO ANSWER
--- NOTE | 2019-05-05 20:37 | NUR ---
REPORT GIVEN TO ERNESTO LLAMAS
--- NOTE | 2019-05-05 21:15 | NUR ---
GPS LINEN TECH NOTES: RECEIVED 58 Y/O MALE PATIENT FROM ER DEPARTMENT. PATIENT ARRIVED ON THIS UNIT AT 2115 ACCOMPANIED BY A NURSE . PATIENT ADMITTED ON A 5150 HOLD FOR DTS. PER HOLD PATIENT ARRIVED TO [facility] GPS UNIT FOR PSYCHIATRIC EVALUATION DUE TO DEPRESSION AND SUICIDAL IDEATION WITH PLAN TO CUT WRIST. UPON FACE TO FACE ASSESSMENT PATIENT NOTED FLAT AFFECT, DEPRESSED, LOW ENERGY, COMPLAINT, AND COOPERATIVE . PT DENIES S/I AND H/I AT THIS TIME. PATIENT IS CURRENTLY LYING IN BED AWAKE. NO S/S OF RESP DISTRESS. BREATHING EVEN AND UNLABORED. PT IS ALERT AND ORIENTED X 4 ON ROOM AIR. PATIENT HAS NO NEEDS AT THIS TIME. PATIENT SIGNED PROPER PAPERWORK. PATIENT ADVISED OF HIS HOLD AND PATIENT RIGHTS HANDBOOK GIVEN. PATIENTS BELONGINGS WERE INVENTORIED AND CHECKED FOR CONTRABAND. PATIENT ADVANCED DIRECTIVE PREFERENCES AND NECESSARY PAPERWORK COMPLETED. PATIENT SKIN ASSESSMENT COMPLETED WITH SKIN NOTED INTACT. PICTURE TAKEN OF PT FOR IDENTIFICATION PUT IN CHART. PT ORIENTED TO ROOM, FLOOR, AND STAFF WITH ALL QUESTIONS ANSWERED. PATIENT EDUCATED ON THE USE OF CALL [place]. PATIENTS SIDERAILS ARE UP X2 FOR SAFETY. INITIAL BLOOD SUGAR CHECK DONE. MRSA SWAB DONE IN THE ER DEPARTMENT. PATIENTS BED LOCKED, LOW AND I WILL CONTINUE TO MONITOR THIS PATIENT Q15 MIN WITH THE HELP OF THE STAFF TO MAINTAIN SAFETY.
[2019-05-05] MEDS ORDERED: ACETAMINOPHEN 325 MG TABLET PO PRN (22:30)
[2019-05-05] MEDS ORDERED: MAGNESIUM HYDROXIDE 30 ML UDC PO PRN (22:30)
[2019-05-05] MEDS ORDERED: MAG HYDROX/AL HYDROX/SIMETH 30 ML UDC PO PRN (22:30)
[2019-05-05] MEDS ORDERED: BLOOD SUGAR DIAGNOSTIC 1 EACH STRIP IN ONE (23:00)
[2019-05-05] MEDS: TEMAZEPAM 7.5 MG CAPSULE PO PRN (23:42)
--- NOTE | 2019-05-05 23:45 | NUR ---
GPS RN NOTES: PT C/O UNABLE TO GO TO SLEEP. PT REQUESTED RESTORIL 7.5 MG PO PRN ORDERED. PT C/O OF BACK PAIN. OFFERED TYLENOL 650 MG PO PRN ORDERED. NO S/S OF RESP DISTRESS. BREATHING EVEN AND UNLABORED. PT TOLERATED MEDICATION WELL CONTINUE TO MONITOR. CONTINUE TO MONITOR.
[2019-05-06 00:41] VITALS: BP 109/74
--- NOTE | 2019-05-06 00:48 | NUR ---
GPS RN NOTE, PATIENT HAS A COMPLAINT OF LOWER BACK PAIN AT 7 OUT 10 ON THE PAIN SCALE AND IS REQUESTING NORCO AT THIS TIME. PAGED [facility] AND INFORMED KEISHA SANTOS DNP OF MY FINDINGS. KEISHA SANTOS DNP ORDERED TO GIVE NORCO 5-325 1 TAB PO Q6HR PRN FOR MODERATE PAIN AT A 4 -7 ON THE PAIN SCALE. ALL ORDERS NOTED AND CARRIED OUT WILL CONTINUE TO MONITOR THIS PATIENT WITH THE HELP OF STAFF.
[2019-05-06 07:13] LABS: EOSINOPHILS % (AUTO) 4.4 % (0.0-6.0); HEMATOCRIT 42 % (39-51); HEMOGLOBIN 14.3 g/dL (13.5-17.5); LYMPHOCYTES # (AUTO) 2.2 /CMM (0.8-4.8); LYMPHOCYTES % (AUTO) 45.5 % (20.0-44.0); MEAN CORPUSCULAR HGB CONC 34 g/dl (31.0-36.0); MEAN CORPUSCULAR VOLUME 87 fL (80-96); MONOCYTES # (AUTO) 0.3 /CMM (0.1-1.30); NEUTROPHILS % (AUTO) 42.1 % (43.0-81.0); PLATELET COUNT (AUTO) 264 /CMM (150-450); RED BLOOD CELL COUNT(AUTO) 4.79 MIL/uL (4.5-6.0); WHITE BLOOD COUNT (AUTO) 4.8 K/uL (4.3-11.0)
[2019-05-06 07:26] LABS: CALCIUM, SERUM 8.9 mg/dL (8.5-10.1); CREATININE 0.9 mg/dL (0.6-1.3)
[2019-05-06 08:00] VITALS: BP 123/87
[2019-05-06] MEDS: HYDROCODONE/APAP 5/325MG 1 EACH TABLET PO PRN ×3 (08:33→22:48)
[2019-05-06] MEDS: clonazePAM 0.5 MG TABLET PO PRN ×2 (10:13→18:09)
--- NOTE | 2019-05-06 10:13 | NUR ---
RN NOTE- PT C/O ANXIETY. KLONOPIN 0.5 MG GIVEN
--- NOTE | 2019-05-06 11:39 | NUR ---
INITIAL DISCHARGE PLAN: Patient wishes to return home [address] [place], [place] [id number] . SW will help form a safe and proper discharge in collaboration with MD.
[2019-05-06 16:00] VITALS: BP 100/64
--- NOTE | 2019-05-06 18:09 | NUR ---
RN NOTE- PT ANXIOUS. KLONOPIN 0.5 MG GIVEN
[2019-05-06 20:00] VITALS: BP_SYST 107; BP_SYST 123; BP_DIAS 65; BP_DIAS 87
[2019-05-06] MEDS: TRAZODONE 50 MG TABLET PO SCH (21:31)
[2019-05-06] MEDS: IBUPROFEN 400 MG TABLET PO PRN (21:42)
--- NOTE | 2019-05-06 22:48 | NUR ---
GPS/RN NOTES: PATIENT REPORTED PAIN LEVEL OF 7-8 ON HIS BACK AND REQUESTED NORCO. ADMINISTERED MG OF NORCO PO PRN FOR PAIN ORDERED. TOLERATED WELL. WILL REASSESS AND CONTINUE TO MONITOR PT ACCORDINGLY.
[2019-05-06] MEDS: TEMAZEPAM 7.5 MG CAPSULE PO PRN (23:50)
--- NOTE | 2019-05-06 23:51 | NUR ---
GPS/RN NOTES: PATIENT REQUESTED FOR SLEEPING PILL. PATIENT'S VS STABLE. GIVEN RESTORIL 7.5MG PO. TOLERATED WELL. WILL CONTINUE MONITORING PT ACCORDINGLY.
[2019-05-07] MEDS: HYDROCODONE/APAP 5/325MG 1 EACH TABLET PO PRN ×3 (06:21→21:26)
--- NOTE | 2019-05-07 06:23 | NUR ---
GPS/RN NOTES: PATIENT IS AWAKE AND COMPLAINING OF PAIN LEVEL OF 7 ON HIS LOWER BACK AND REQUESTED NORCO. ADMINISTERED 5MG OF NORCO PO PRN FOR PAIN ORDERED. TOLERATED WELL. WILL REASSESS AND CONTINUE TO MONITOR PT ACCORDINGLY.
[2019-05-07 08:00] VITALS: BP 100/61
[2019-05-07] MEDS: clonazePAM 0.5 MG TABLET PO PRN ×2 (08:27→16:35)
[2019-05-07] MEDS: SERTRALINE HCL 50 MG TABLET PO SCH (08:27)
[2019-05-07 16:00] VITALS: BP 115/68
[2019-05-07 20:00] VITALS: BP 103/52
[2019-05-07] MEDS: TRAZODONE 50 MG TABLET PO SCH (21:25)
[2019-05-07] MEDS: TEMAZEPAM 7.5 MG CAPSULE PO PRN (22:48)
[2019-05-07 22:52] VITALS: BP 103/52
[2019-05-08 08:00] VITALS: BP 108/69
[2019-05-08] MEDS: SERTRALINE HCL 50 MG TABLET PO SCH (08:27)
[2019-05-08] MEDS: HYDROCODONE/APAP 5/325MG 1 EACH TABLET PO PRN ×2 (08:27→21:29)
[2019-05-08] MEDS: clonazePAM 0.5 MG TABLET PO PRN ×2 (10:20→18:32)
[2019-05-08] MEDS: IBUPROFEN 400 MG TABLET PO PRN (14:56)
[2019-05-08 16:00] VITALS: BP 108/67
[2019-05-08 20:33] VITALS: BP 99/50
[2019-05-08] MEDS: TRAZODONE 50 MG TABLET PO SCH (21:28)
[2019-05-08] MEDS: TEMAZEPAM 7.5 MG CAPSULE PO PRN (22:12)
--- NOTE | 2019-05-08 23:48 | NUR ---
PT COMPLAINED OF SEVERE BACK PAIN LEVEL OF 9/10. AT 2128 NORCO 5-325MG 1 TAB GIVEN PO. PT SLEEPING COMFORTABLY DURING PAIN REASSESSMENT. RESPIRATION EVEN AND UNLABORED, NO S/S OF DISTRESS.
--- NOTE | 2019-05-08 23:53 | NUR ---
PT REFUSED SKIN CHECK
--- NOTE | 2019-05-09 06:32 | NUR ---
RN NOTES PT IN GOOD CONDITION, SLEEPING COMFORTABLY IN BED. NO S/S OF DISTRESS. SAFETY PRECAUTION CONTINUED, BED IN LOW POSITION, LOCKED AND SIDE RAILS UP X2. WILL CONTINUE TO MONITOR AND ENDORSE TO AM SHIFT
[2019-05-09 08:00] VITALS: BP 108/70
[2019-05-09] MEDS: HYDROCODONE/APAP 5/325MG 1 EACH TABLET PO PRN ×2 (08:30→21:08)
[2019-05-09] MEDS: SERTRALINE HCL 50 MG TABLET PO SCH (08:31)
[2019-05-09] MEDS: clonazePAM 0.5 MG TABLET PO PRN ×2 (10:08→21:38)
--- NOTE | 2019-05-09 11:05 | NUR ---
UR NOTE: JUSTO faxed clinicals to Елена-caser at [facility] P: [phone] ex:Scott F: [phone].
--- NOTE | 2019-05-09 15:45 | NUR ---
GROUP NOTE: SW encouraged pt to participate in group therapy discussing "discharge planing." Pt is isolative and withdrawn and stated he wanted to stay in his room, with a lot of encouragement SW attempted to convince pt to participate in group. Pt stayed quiet and did not participate and stated he was not ready to share his feelings in front of other people. SW respected his right to self determination.
[2019-05-09 16:00] VITALS: BP 117/70
--- NOTE | 2019-05-09 16:18 | NUR ---
INDIVIDUAL MEETING: SW met with pt to discuss his discharge plan pt asked SW if she is able to find him a place to live for $400. SW informed pt that there are no placement options for that amount. Pt understood and stated he will return back home.
[2019-05-09 20:12] VITALS: BP 115/66
[2019-05-09] MEDS: TRAZODONE 50 MG TABLET PO SCH (21:08)
--- NOTE | 2019-05-09 21:10 | NUR ---
GPS RN NOTE: PATIENT COMPLAINS OF BACK PAIN 10/20, NORCO 5/325MG 1 TAB ORAL GIVEN PER MD ORDER. WILL CONTINUE TO MONITOR.
[2019-05-09] MEDS: TEMAZEPAM 7.5 MG CAPSULE PO PRN (21:39)
--- NOTE | 2019-05-09 21:45 | NUR ---
GPS RN NOTE: PATIENT ANXIOUS AND REQUESTING FROM SLEEPING MEDICATIONS. KLONOPIN 0.25MG ORAL AND RESTORIL 7.5MG ORAL GIVEN PER MD ORDER. WILL CONTINUE TO MONITOR.
[2019-05-10 08:00] VITALS: BP 118/78
[2019-05-10] MEDS: SERTRALINE HCL 50 MG TABLET PO SCH (08:41)
[2019-05-10] MEDS: HYDROCODONE/APAP 5/325MG 1 EACH TABLET PO PRN ×2 (08:42→21:42)
--- NOTE | 2019-05-10 08:55 | NUR ---
UR NOTE: JUSTO faxed clinicals to Елена-case managers at [facility] P: [phone] ex:Scott F: [phone].
[2019-05-10 08:58] LABS: BASOPHILS # (AUTO) 0.1 /CMM (0.0-0.2); BASOPHILS % (AUTO) 0.9 % (0.0-2.0); EOSINOPHILS % (AUTO) 3.8 % (0.0-6.0); HEMATOCRIT 42 % (39-51); HEMOGLOBIN 14.2 g/dL (13.5-17.5); LYMPHOCYTES # (AUTO) 2.1 /CMM (0.8-4.8); LYMPHOCYTES % (AUTO) 33.6 % (20.0-44.0); MEAN CORPUSCULAR HGB CONC 34 g/dl (31.0-36.0); MEAN CORPUSCULAR VOLUME 89 fL (80-96); MONOCYTES # (AUTO) 0.5 /CMM (0.1-1.30); MONOCYTES % (AUTO) 7.8 % (2.0-12.0); NEUTROPHILS # (AUTO) 3.3 /CMM (1.8-8.9); NEUTROPHILS % (AUTO) 53.9 % (43.0-81.0); PLATELET COUNT (AUTO) 250 /CMM (150-450); RED BLOOD CELL COUNT(AUTO) 4.78 MIL/uL (4.5-6.0); WHITE BLOOD COUNT (AUTO) 6.1 K/uL (4.3-11.0)
[2019-05-10 09:07] LABS: CALCIUM, SERUM 8.8 mg/dL (8.5-10.1); MAGNESIUM 2.2 mg/dL (1.8-2.4); PHOSPHORUS 2.5 mg/dL (2.5-4.9); POTASSIUM 4.9 mmol/L (3.5-5.1)
[2019-05-10] MEDS: clonazePAM 0.5 MG TABLET PO PRN (10:08)
--- NOTE | 2019-05-10 15:48 | NUR ---
GROUP NOTE: SW encouraged pt to participate in group therapy discussing "reality-testing." Pt states he does not want to leave his room today and states he is feeling depressed and continues to have suicidal ideation. Pt feels his medication needs to be increased. Pt states that from a 1-10 scale he feels his depression is at an 8. Pt states he does not know what triggers his sadness and depression and that he may need another place to live. SW reminded pt of the conversation she had yesterday with pt and informed him there are no placement options for pt with his budget at the moment. Pt understood. JUSTO will discuss pts symptoms with nursing staff and .
[2019-05-10 16:00] VITALS: BP 122/81
[2019-05-10] MEDS ORDERED: risperiDONE 1 MG TABLET PO SCH (18:30)
[2019-05-10] MEDS: risperiDONE 1 MG TABLET PO SCH (19:29)
[2019-05-10 20:05] VITALS: BP 109/72
[2019-05-10] MEDS: TRAZODONE 50 MG TABLET PO SCH (21:08)
[2019-05-10] MEDS: TEMAZEPAM 7.5 MG CAPSULE PO PRN (23:41)
[2019-05-11] MEDS: IBUPROFEN 400 MG TABLET PO PRN (06:11)
[2019-05-11 08:00] VITALS: BP 100/68
[2019-05-11] MEDS: clonazePAM 0.5 MG TABLET PO PRN (08:30)
[2019-05-11] MEDS: risperiDONE 1 MG TABLET PO SCH ×2 (08:31→20:23)
[2019-05-11] MEDS: SERTRALINE HCL 50 MG TABLET PO SCH (08:31)
--- NOTE | 2019-05-11 08:34 | NUR ---
WINSOME PELLETIERONOANIKA GIVEN FOR ANXIETY Addendum: 05/11/19 at 1008 by RESHMA ABRAMS RN PRN NORCO GIVEN FOR 8/10 PAIN TO LOWER BACK AND NECK Addendum: 05/11/19 at 1811 by RESHMA ABRAMS RN PRN NORCO GIVEN FOR 7/10 PAIN TO LOWER BACK AND NECK
[2019-05-11] MEDS: HYDROCODONE/APAP 5/325MG 1 EACH TABLET PO PRN ×2 (10:08→18:10)
[2019-05-11 16:00] VITALS: BP 113/79
[2019-05-11 20:17] VITALS: BP 117/74
[2019-05-11] MEDS: TRAZODONE 50 MG TABLET PO SCH (21:18)
[2019-05-12] MEDS: HYDROCODONE/APAP 5/325MG 1 EACH TABLET PO PRN ×3 (03:57→20:17)
[2019-05-12 03:59] VITALS: BP 128/87
--- NOTE | 2019-05-12 04:01 | NUR ---
GPS RN NOTES: PT C/O OF LOWER BACK PAIN. WHEN ASKED PT TO RATE THE PAIN FROM 1-10 PT SAID 7. PT STATED, "YES, I HAVE LOWER BACK PAIN. CAN I HAVE MY NORCO?" OFFERED NARCO 5-325MG PO PRN ORDERED. PT AGREED. VITALS ARE WNL. NO S/S OF RESP DISTRESS. BREATHING EVEN AND UNLABORED. CONTINUE TO MONITOR.
[2019-05-12 08:00] VITALS: BP 96/60
[2019-05-12] MEDS: SERTRALINE HCL 50 MG TABLET PO SCH (08:11)
[2019-05-12] MEDS: risperiDONE 1 MG TABLET PO SCH ×2 (08:11→20:16)
[2019-05-12] MEDS: IBUPROFEN 400 MG TABLET PO PRN (08:14)
--- NOTE | 2019-05-12 08:53 | NUR ---
UR NOTE: JUSTO faxed clinicals to Елена-case management manager at [facility] P: [phone] ex:Scott F: [phone].
--- NOTE | 2019-05-12 15:20 | NUR ---
GROUP NOTE: SW encouraged pt to attend group therapy on this present day discussing "suicidal urges." Pt states he is feeling better and that he is no longer having strong feelings of depression. Pt denied suicidal ideation and states that the Risperdal made him feel better. Pt is also less isolative and withdrawn. Pt states he is ready for discharge back home tomorrow Thursday05/13/19.
[2019-05-12 16:00] VITALS: BP 115/77
[2019-05-12] MEDS: TRAZODONE 50 MG TABLET PO SCH (20:16)
[2019-05-12 20:55] VITALS: BP 102/56
[2019-05-12] MEDS: TEMAZEPAM 7.5 MG CAPSULE PO PRN (22:18)
[2019-05-13] MEDS: HYDROCODONE/APAP 5/325MG 1 EACH TABLET PO PRN (06:32)
[2019-05-13 08:00] VITALS: BP 127/69
[2019-05-13] MEDS: risperiDONE 1 MG TABLET PO SCH (08:07)
[2019-05-13] MEDS: SERTRALINE HCL 50 MG TABLET PO SCH (08:08)
--- NOTE | 2019-05-13 10:35 | NUR ---
SNF REFERRAL: SW faxed SNF referral to CHERISE, education and training coordinator at [facility] (SNF) [address] [place], [address] per pts request and pt has been accepted.
--- NOTE | 2019-05-13 11:05 | NUR ---
DR. PATEL GAVE AN ORDER TO D/C HOLD, TO CONTINUE SAME MEDS INCLUDING PRN AND TO FOLLOW UP WITH PSYCH AND MEDICAL DOCTORS.
--- NOTE | 2019-05-13 11:22 | NUR ---
DISCHARGE NOTE: Pt discharging 1:00pm via [facility] to [facility] ([facility]) [address] [place], [address] . No family to notify. Pts mood is euthymic with congruent affect. Pt denied visual/auditory hallucinations and denied suicidal/homicidal ideation. Pt will be under the care of Completions Manager: Dr Booth Address: [address] [place] [address] Marcelino Address: [address] [place] [address] . For smoking cessation, patient was referred to the [employer] and [employer] [id number]. Pt will also participate in a telephone meeting with [employer] [phone] on Thursday05/14/19 at 8:00am. The multidisciplinary exit care form was done, printed, signed, and given to the patient.
--- NOTE | 2019-05-13 13:13 | NUR ---
GPS EMAIL PRODUCTION SPECIALIST NOTE: PATIENT IS A 58 Y/O MAIL DISCHARGED TO [facility]. PATIENT IS IN STABLE CONDITION. VSS. NO ACUTE DISTRESS NOTED. NO COMPLAINTS. COMPLIANT WITH MEDICATION MANAGEMENT. COOPERATIVE WITH PLAN OF CARE. PSYCHIATRIC TREATMENT PLANS MET. MEDICAL TREATMENT PLANS DEFERRED FOR CONTINUAL MONITORING. DENIES SI/HI [facility] DENIES FEELING DEPRESSED, AMBULATORY SELF CARE,A/OX4. AT THE TIME OF DISCHARGE. SKIN CHECK DONE SKIN CLEAN AND INTACT . EDUCATED PATIENT ABOUT AFTERCARE WITH COPY PROVIDED. RETURNED PERSONAL BELONGINGS TO PATIENT. MEDICATIONS RECONCILED WITH ALONG WITH PSYCHIATRIC DISCHARGE ORDERS. DISCHARGE PAPERWORK SIGNED. REPORT GIVEN TO FACILITY RN JEREMIAH, PT WILL FOLLOW UP WITH PSYCHIATRIST AND EXTENSION WORK INSTRUCTOR WITHIN 1 WEEK. PATIENT LEFT THE [facility] GPS VIA AMBULANCE .
== END 2019-05-13 13:05 | DRG 885 ==
LOC: ER 12:23 → GPS 20:59
PROVIDERS: ADMIT Psychiatry & Neurology Psychiatry; ATTEND Nurse Practitioner Acute Care
DX: F33.3 Major depressive disorder, recurrent, severe with psychotic symptoms (principal); F23 Brief psychotic disorder; R45.851 Suicidal ideations; J44.9 Chronic obstructive pulmonary disease, unspecified; M41.9 Scoliosis, unspecified; F41.9 Anxiety disorder, unspecified; G89.4 Chronic pain syndrome; G62.9 Polyneuropathy, unspecified; F98.8 Other specified behavioral and emotional disorders with onset usually occurring in childhood and adolescence; F17.210 Nicotine dependence, cigarettes, uncomplicated; M54.30 Sciatica, unspecified side
CPT/HCPCS: 36415; 71045-TC; 80048-TC; 80061-TC; 80076-TC; 80305; 81000-TC; 82962-TC; 83735-TC; 84100-TC; 85025-TC; 87081-TC; G0480

== ENCOUNTER 2019-07-02 19:04 | Inpatient (IN) | payer MEDICARE, OTHER ==
[~2019-07-02] VITALS: Ht 170.2 cm; Wt 72.6 kg
[~2019-07-02 19:04] MED LIST changes: +ATEN50TA PO; +DEXT20TA6 PO; -GABA-534 PO
--- NOTE | 2019-07-02 19:20 | NUR ---
MYLENE SUE FOR MEDICAL CLEARANCE. ON 5150 FOR AGRESSIVE BEHAVIOR. PT PLACED IN GOWN, ON MONITOR, AND PULSE OX. VSS. AWAITING MD FOR EVAL. WILL CONTINUE TO MONITOR.
[2019-07-02] MEDS ORDERED: HYDROCODONE/APAP 5/325MG 1 EACH TABLET PO ONE (19:30)
[2019-07-02] MEDS ORDERED: HYDROCODONE/APAP 5/325MG 1 EACH TABLET ONE (19:32)
[2019-07-02 19:39] LABS: BASOPHILS # (AUTO) 0.1 /CMM (0.0-0.2); BASOPHILS % (AUTO) 0.8 % (0.0-2.0); EOSINOPHILS % (AUTO) 3.8 % (0.0-6.0); HEMATOCRIT 48 % (39-51); HEMOGLOBIN 15.9 g/dL (13.5-17.5); LYMPHOCYTES # (AUTO) 2.1 /CMM (0.8-4.8); LYMPHOCYTES % (AUTO) 24.5 % (20.0-44.0); MEAN CORPUSCULAR HGB CONC 33 g/dl (31.0-36.0); MEAN CORPUSCULAR VOLUME 89 fL (80-96); MONOCYTES # (AUTO) 0.6 /CMM (0.1-1.30); NEUTROPHILS # (AUTO) 5.4 /CMM (1.8-8.9); NEUTROPHILS % (AUTO) 63.9 % (43.0-81.0); PLATELET COUNT (AUTO) 236 /CMM (150-450); WHITE BLOOD COUNT (AUTO) 8.5 K/uL (4.3-11.0)
--- NOTE | 2019-07-02 20:03 | NUR ---
URINE SENT TO LAB
[2019-07-02 20:15] LABS: CALCIUM, SERUM 9.1 mg/dL (8.5-10.1); CARBON DIOXIDE 25 mmol/L (21-32); CHLORIDE 103 mmol/L (98-107); CREATININE 1.3 mg/dL (0.6-1.3); GLUCOSE 79 mg/dL (74-106); POTASSIUM 3.3 mmol/L (3.5-5.1); SODIUM SERUM 141 mmol/L (136-145); UREA NITROGEN, BLOOD 18 mg/dL (7-18)
[2019-07-02 20:20] LABS: ALANINE AMINOTRANSFERASE 30 U/L (12-78); ALBUMIN 3.9 g/dL (3.4-5.0); ALKALINE PHOSPHATASE 119 U/L (46-116); ASPARTATE AMINOTRANSFERASE 32 U/L (15-37); BILIRUBIN,DIRECT 0.1 mg/dL (0.0-0.2); BILIRUBIN,TOTAL 0.3 mg/dL (0.2-1.0); SALICYLATE 2.3 mg/dL (2.8-20.0); TOTAL PROTEIN, SERUM 7.4 g/dL (6.4-8.2)
[2019-07-02 20:21] LABS: ACETAMINOPHEN 0 ug/ml (10-30); ALCOHOL, BLOOD < 3 mg/dL (0-0)
--- NOTE | 2019-07-02 20:22 | NUR ---
CALLED HOUSE [facility] FOR GPS BED
[2019-07-02] MEDS ORDERED: POTASSIUM CHLORIDE 20 MEQ TAB.PRT.SR PO ONE ×2 (20:28→20:30)
[2019-07-02 20:31] LABS: APPEARANCE,URINE Clear (CLEAR); BILIRUBIN,URINE Negative (NEGATIVE); BLOOD, URINE Negative Ery/uL (NEGATIVE); COLOR,URINE Yellow (YELLOW); KETONES,URINE Negative (NEGATIVE); LEUKOCYTE ESTERASE ,URINE Negative (NEGATIVE); NITRITE, URINE Negative (NEGATIVE); PH,URINE 5.5 (5.0-8.0); PROTEIN,URINE Negative (NEGATIVE); UGLUCOSE Negative (NEGATIVE); UROBILINOGEN,URINE 0.2 EU/dL (0.2)
[2019-07-02] MEDS ORDERED: IPRA3AMP23 IH (21:17)
[2019-07-02] MEDS ORDERED: AMPH20TA3 PO (21:17)
[2019-07-02] MEDS ORDERED: RISP2TAB5 PO (21:17)
[2019-07-02] MEDS ORDERED: METH-406 PO (21:17)
[2019-07-02] MEDS ORDERED: TRAZ-257 PO (21:17)
[2019-07-02] MEDS ORDERED: TEMA15CA PO (21:17)
[2019-07-02] MEDS ORDERED: GABA100C PO (21:17)
[2019-07-02] MEDS ORDERED: CLON1TAB12 PO (21:17)
[2019-07-02] MEDS ORDERED: OMEP20CA15 PO (21:17)
[2019-07-02] MEDS ORDERED: GUAI100S34 PO (21:20)
[2019-07-02] MEDS ORDERED: ACET-868 PO (21:20)
[2019-07-02] MEDS ORDERED: IBUP-1953 PO (21:20)
--- NOTE | 2019-07-02 21:28 | NUR ---
GPS ROLL PLUGGER NOTE: RECEIVED PT FROM [facility] AND ARRIVED AT 2127 VIA GURNEY W/ STAFF. PT. ADMITTED ON A 5150 HOLD FOR DTO. PER HOLD PT. HAS BEEN ACTING OUT AGGRESSIVELY TOWARDS STAFF AND OTHERS. PT HAS BEEN ARGUING, YELLING AND SCREAMING AT CAREGIVERS. THE 5150 WAS REVIEWED AND DOCUMENTATION OF HOLD APPEARS TO REFLECT PRESENTATION OF PATIENT. PT. IS LYING IN BED AWAKE, NO S/S OR COMPLAINS OF PAIN AT THIS TIME. NO S/S OF DISTRESS OR SOB. PT. A/O X3 ON ROOM AIR. NOTED TO BEING GUARDED, WITHDRAWN, ISOLATIVE, DENIES SI/HI AT THIS TIME. SKIN ASSESSMENT DONE AND PICTURE TAKEN IN CHART. PT. UNDER PSYCHIATRIC CARE OF DR. WATTS. PT BELONGINGS WERE INVENTORIED AND CHECKED FOR CONTRABAND. ALL CONTRABAND REMOVED AND STORED IN PT.'S LOCKER. PAPERWORK COMPLETED. PT. EDUCATED ON USE OF CALL [place], SIDE RAILS UP X2 FOR SAFETY, BED LOCKED AND IN LOW POSITION. WILL CONTINUE TO MONITOR FOR SAFETY AND BEHAVIOR. Addendum: 07/03/19 at 1146 by JESUS MABRY RN RN NOTE: PAIN PT C/O 7-8 GENERALIZED PAIN "ALL OVER". REQUESTING NORCO PO. NORCO 5/325MG PO PRN GIVEN. PT UPSET HE WILL NOT BE PRESCRIBED HIS ADDERALL PER DR. WTATS.
[2019-07-02 22:10] VITALS: BP 130/80
[2019-07-02] MEDS ORDERED: ACETAMINOPHEN 325 MG TABLET PO PRN ×2 (22:30)
[2019-07-02] MEDS ORDERED: MAG HYDROX/AL HYDROX/SIMETH 30 ML UDC PO PRN (22:30)
[2019-07-02] MEDS ORDERED: GUAIFENESIN 300 MG/15 ML UDC PO PRN (22:30)
[2019-07-02] MEDS ORDERED: MAGNESIUM HYDROXIDE 30 ML UDC PO PRN (22:30)
[2019-07-02] MEDS ORDERED: IBUPROFEN 400 MG TABLET PO PRN (22:30)
[2019-07-02] MEDS ORDERED: BLOOD SUGAR DIAGNOSTIC 1 EACH STRIP IN ONE (22:30)
[2019-07-02] MEDS: TEMAZEPAM 7.5 MG CAPSULE PO PRN (23:07)
[2019-07-03] MEDS: LORAZEPAM 0.5 MG TABLET PO PRN ×2 (05:19→12:57)
[2019-07-03 07:16] LABS: THYROID STIMULATING HORMONE 1.045 uIU/mL (0.358-3.74)
[2019-07-03 07:19] LABS: ALBUMIN 3.4 g/dL (3.4-5.0); BILIRUBIN,TOTAL 0.3 mg/dL (0.2-1.0); CALCIUM, SERUM 8.9 mg/dL (8.5-10.1); CREATININE 1.2 mg/dL (0.6-1.3); TOTAL PROTEIN, SERUM 6.5 g/dL (6.4-8.2)
[2019-07-03] MEDS ORDERED: OMEPRAZOLE 20 MG CAPSULE.DR PO SCH (07:30)
[2019-07-03] MEDS: PANTOPRAZOLE 40 MG TABLET.DR PO SCH (07:33)
[2019-07-03 08:00] VITALS: BP 119/75
[2019-07-03] MEDS: NICOTINE PATCH (14MG) 14 MG PATCH.TD24 TD SCH (08:08)
[2019-07-03] MEDS: METHOCARBAMOL (750MG) 750 MG TABLET PO PRN (08:08)
[2019-07-03] MEDS: GABAPENTIN 100 MG CAPSULE PO SCH ×3 (08:08→16:36)
[2019-07-03] MEDS: ATENOLOL 50 MG TABLET PO SCH ×2 (08:10→09:09)
[2019-07-03] MEDS: HYDROCODONE/APAP 5/325MG 1 EACH TABLET PO PRN ×2 (11:45→20:27)
--- NOTE | 2019-07-03 12:57 | NUR ---
RN NOTE: PT REQUESTING ATIVAN. ATIVAN 0.5 MG PO PRN GIVEN.
[2019-07-03] MEDS: BENZTROPINE MESYLATE (1 MG) 1 MG TABLET PO SCH ×2 (14:02→16:36)
[2019-07-03] MEDS: risperiDONE 1 MG TABLET PO SCH ×2 (14:02→21:23)
[2019-07-03 16:00] VITALS: BP 115/75
--- NOTE | 2019-07-03 20:27 | NUR ---
RN NOTES : PAIN PT. C/O GENERALIZED PAIN 11/20 . PRN NARCO 5 MG/325 MG , GIVEN PER PT. REQUEST, WILL CONTINUE TO MONITOR.
[2019-07-03 21:13] VITALS: BP 112/66
[2019-07-03] MEDS: TEMAZEPAM 7.5 MG CAPSULE PO PRN (22:39)
--- NOTE | 2019-07-03 22:40 | NUR ---
RN NOTES: INSOMNIA PT. C/O UNABLE TO SLEEP ,PRN RESTORIL 7.5 MG PO GIVEN, PER PT. REQUEST , WILL CONTINUE TO MONITOR.
[2019-07-04] MEDS: METHOCARBAMOL (750MG) 750 MG TABLET PO PRN ×2 (05:01→18:57)
--- NOTE | 2019-07-04 05:04 | NUR ---
RN NOTES: PT.C/O MUSCLES SPASM ,PRN ROBAXIN 750 MG PO GIVEN PER PT. REQUEST, WILL CONTINUE TO MONITOR.
[2019-07-04] MEDS: PANTOPRAZOLE 40 MG TABLET.DR PO SCH (07:42)
[2019-07-04 08:00] VITALS: BP 102/69
[2019-07-04] MEDS: BENZTROPINE MESYLATE (1 MG) 1 MG TABLET PO SCH ×2 (08:28→16:37)
[2019-07-04] MEDS: NICOTINE PATCH (14MG) 14 MG PATCH.TD24 TD SCH (08:28)
[2019-07-04] MEDS: GABAPENTIN 100 MG CAPSULE PO SCH ×3 (08:28→16:37)
[2019-07-04] MEDS: risperiDONE 1 MG TABLET PO SCH ×2 (08:28→20:38)
[2019-07-04] MEDS: ATENOLOL 50 MG TABLET PO SCH (08:30)
[2019-07-04] MEDS: HYDROCODONE/APAP 5/325MG 1 EACH TABLET PO PRN ×2 (09:19→16:37)
--- NOTE | 2019-07-04 09:19 | NUR ---
RN NOTE: PAIN PT C/O 11/20 GENERALIZED PAIN. REQUESTING NORCO. NORCO 5/325MG PO PRN GIVEN.
--- NOTE | 2019-07-04 15:39 | NUR ---
Group Note: SW encouraged the pt to participate in group therapy on 07/04/19 at 2pm discussing discharge planning. Pt appeared to be confused and was unable to engage in the topic. SW informed him that she is attempting to make contact with his facility and that once she knows whether or not the pt can return to [facility] the pt will be made aware. He stated that he is aware that is the [facility] that he [facility] in and that he would appreciate any information.
[2019-07-04 16:00] VITALS: BP 107/62
--- NOTE | 2019-07-04 16:35 | NUR ---
RN NOTE: PAIN PT C/O 11/20 GENERALIZED PAIN. REQUESTING NORCO. NORCO 5/325 MG PO PRN GIVEN
--- NOTE | 2019-07-04 18:57 | NUR ---
RN NOTE: PAIN PT REQUESTING ROBAXIN FOR PAIN PT MEDICATED PRN.
[2019-07-04 20:15] VITALS: BP 123/95
[2019-07-04] MEDS: TEMAZEPAM 7.5 MG CAPSULE PO PRN (22:19)
--- NOTE | 2019-07-04 22:20 | NUR ---
RN NOTES: INSOMNIA PT. C/O UNABLE TO SLEEP ,PRN RESTORIL 7.5 MG PO GIVEN, PER PT. REQUEST , WILL CONTINUE TO MONITOR.
[2019-07-05 08:00] VITALS: BP 121/74
[2019-07-05] MEDS: GABAPENTIN 100 MG CAPSULE PO SCH ×3 (08:05→16:51)
[2019-07-05] MEDS: NICOTINE PATCH (14MG) 14 MG PATCH.TD24 TD SCH (08:05)
[2019-07-05] MEDS: ATENOLOL 50 MG TABLET PO SCH (08:06)
[2019-07-05] MEDS: HYDROCODONE/APAP 5/325MG 1 EACH TABLET PO PRN ×3 (08:06→22:36)
[2019-07-05] MEDS: PANTOPRAZOLE 40 MG TABLET.DR PO SCH (08:07)
[2019-07-05] MEDS: BENZTROPINE MESYLATE (1 MG) 1 MG TABLET PO SCH ×2 (08:07→16:51)
[2019-07-05] MEDS: risperiDONE 1 MG TABLET PO SCH ×2 (08:07→21:03)
--- NOTE | 2019-07-05 08:07 | NUR ---
RN NOTE: PAIN PT C/O 11/20 GENERALIZED PAIN. REQUESTING NORCO PRN. NORCO 5/325 MG PO PRN ADMINISTERED.
--- NOTE | 2019-07-05 09:01 | NUR ---
Initial Discharge Plan: Pt currently resides at [facility] located at [address] [place] [address]; ([phone]). Per pt, he would like to return to the facility. SW will work with the pt and the MD regarding appropriate discharge planning. SW will form a safe and proper plan.
--- NOTE | 2019-07-05 09:10 | NUR ---
Family Contact: SW called the pts half brother, Matthew ([phone]), and left a message on his voicemail.
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
--- NOTE | 2019-07-05 12:00 | NUR ---
Substance Abuse Intervention: SW conducted a substance abuse intervention with the pt regarding his opiate and amphetamine use.
[2019-07-05] MEDS: METHOCARBAMOL (750MG) 750 MG TABLET PO PRN (13:37)
--- NOTE | 2019-07-05 13:38 | NUR ---
RN NOTE: PT REQUESTING MUSCLE RELAXER FOR PAIN. MEDICATED WITH ROBAXIN 750 MG PO PRN.
--- NOTE | 2019-07-05 15:42 | NUR ---
Group Note: SW encouraged the pt to participate in group therapy on 07/05/19 at 2pm discussing urges. Pt stated that he did not want to leave his room and refused to attend the group. Pt stated that he gets aggressive at times when he feels irritated and the SW had the pt discuss what causes him to feel upset and to recognize those feelings and channel it into positive activities.
[2019-07-05 16:00] VITALS: BP 96/66
--- NOTE | 2019-07-05 16:53 | NUR ---
RN NOTE: PAIN PT C/O 11/20 GENERALIZED PAIN. REQUESTING NORCO. NORCO 5/325 MG PO PRN ADMINISTERED.
[2019-07-05 20:00] VITALS: BP 100/62
[2019-07-05 20:18] VITALS: BP 100/62
[2019-07-05] MEDS: TEMAZEPAM 7.5 MG CAPSULE PO PRN (21:34)
--- NOTE | 2019-07-05 21:37 | NUR ---
GPS RN notes Pt is unable to sleep and requesting sleeping pill. Administered restoril 7.5 mg as ordered for sleeping. Safety precautions is maintained. Will continue to monitor.
--- NOTE | 2019-07-05 22:38 | NUR ---
GPS RN notes Pt is complaining of pain and requesting pain medication. Administered norco 5-325 mg/1 tab/po as ordered for pain. Safety precautions is maintained. Will continue to monitor.
--- NOTE | 2019-07-05 23:05 | NUR ---
GPS RN notes Transfer of care to ERNESTO Mota
--- NOTE | 2019-07-05 23:10 | NUR ---
GPS RN OPENING NOTE RECEIVED REPORT FROM MORIAH OROZCO. TOLERATING ROOM AIR. NO S/S OF PAIN. NO DISTRESS NOTED. PATIENT CURRENTLY ASLEEP. WILL CONTINUE TO MONITOR.
--- NOTE | 2019-07-05 23:50 | NUR ---
TRANSFER OF CARE TO MORIAH OROZCO.
--- NOTE | 2019-07-05 23:51 | NUR ---
GPS RN notes Received Pt back from [facility]NE[facility] Mota
[2019-07-06] MEDS: METHOCARBAMOL (750MG) 750 MG TABLET PO PRN ×2 (02:40→13:26)
--- NOTE | 2019-07-06 02:42 | NUR ---
GPS RN notes Pt is complaining of pain and requesting Robaxin. Administered Robaxin 750 mg/1 tab as ordered for muscle relaxer. Safety precautions is maintained. Will continue to monitor.
[2019-07-06 08:00] VITALS: BP 110/71
[2019-07-06] MEDS: ATENOLOL 50 MG TABLET PO SCH (09:00)
--- NOTE | 2019-07-06 09:25 | NUR ---
SNF Referral: JUSTO faxed a referral to [facility] with attn to Andres to the fax number: [phone].
[2019-07-06] MEDS: PANTOPRAZOLE 40 MG TABLET.DR PO SCH (10:01)
[2019-07-06] MEDS: BENZTROPINE MESYLATE (1 MG) 1 MG TABLET PO SCH ×2 (10:01→17:29)
[2019-07-06] MEDS: GABAPENTIN 100 MG CAPSULE PO SCH ×3 (10:01→17:29)
[2019-07-06] MEDS: risperiDONE 1 MG TABLET PO SCH ×2 (10:01→21:16)
[2019-07-06] MEDS: HYDROCODONE/APAP 5/325MG 1 EACH TABLET PO PRN ×3 (10:02→21:16)
--- NOTE | 2019-07-06 10:02 | NUR ---
MEDICATED FOR CHEST PAIN AND BACK PAIN WITH NORCO.
[2019-07-06] MEDS: NICOTINE PATCH (14MG) 14 MG PATCH.TD24 TD SCH (10:10)
--- NOTE | 2019-07-06 13:25 | NUR ---
medicated with robaxin.
[2019-07-06 16:00] VITALS: BP 145/95
--- NOTE | 2019-07-06 17:28 | NUR ---
GIVEN NORCO FOR BACK PAIN AND CHEST PAIN.
--- NOTE | 2019-07-06 19:30 | NUR ---
GPS RN NOTE REPORT RECIEVED FROM VLAD OROZCO. RECIEVED PATIENT IN BED SEEN WITH EYES CLOSED. PATIENT IN NO APPARENT DISTRESS. BREATHING IS EVEN AND UNLABORED. SAFETY PRECAUTIONS IN PLACE WILL CONTINUE TO MONITOR THE PATIENT PER PROTOCOL WITH HELP OF STAFF TO MAINTAIN SAFETY.
[2019-07-06 20:31] VITALS: BP 134/91
--- NOTE | 2019-07-06 21:16 | NUR ---
FABIOLA ADMINISTERED PRN FOR PATIENT REQUEST AND REPORTED BACK AND CHEST PAIN RATED 6/10.
[2019-07-06] MEDS: TEMAZEPAM 7.5 MG CAPSULE PO PRN (22:15)
--- NOTE | 2019-07-06 22:19 | NUR ---
RESTORIL ADMINISTERED AT PATIENTS REQUEST PRN ORDERED
[2019-07-07 08:00] VITALS: BP 111/79
[2019-07-07] MEDS: NICOTINE PATCH (14MG) 14 MG PATCH.TD24 TD SCH (08:34)
[2019-07-07] MEDS: GABAPENTIN 100 MG CAPSULE PO SCH ×3 (08:34→16:17)
[2019-07-07] MEDS: PANTOPRAZOLE 40 MG TABLET.DR PO SCH (08:35)
[2019-07-07] MEDS: risperiDONE 1 MG TABLET PO SCH ×2 (08:35→21:20)
[2019-07-07] MEDS: BENZTROPINE MESYLATE (1 MG) 1 MG TABLET PO SCH ×3 (08:35→16:17)
[2019-07-07] MEDS: ATENOLOL 50 MG TABLET PO SCH (08:35)
[2019-07-07] MEDS: HYDROCODONE/APAP 5/325MG 1 EACH TABLET PO PRN ×2 (10:06→18:36)
--- NOTE | 2019-07-07 10:07 | NUR ---
GPS/RN-NOTES PATIENT C/O 11/20 LOWER BACK PAIN. NORCO 5/325MG 1 TAB P.O GIVEN PRN ORDER.
[2019-07-07] MEDS: METHOCARBAMOL (750MG) 750 MG TABLET PO PRN (13:42)
--- NOTE | 2019-07-07 13:43 | NUR ---
GPS/RN-NOTES PATIENT C/O MUSCLE SPASM ROBAXIN 750 MG 1 TAB P.O GIVEN PRN ORDER.
--- NOTE | 2019-07-07 14:10 | NUR ---
GPS/RN-NOTES PER PATIENT EBONY HELPS WITH THE SPASM.
[2019-07-07 16:00] VITALS: BP 113/76
--- NOTE | 2019-07-07 16:09 | NUR ---
Individual Note: In lieu of group therapy due to COVID 19, SW met with the pt in the activities room and attempted to speak to the pt about his discharge plan but the pts speech pattern was tangential and the SW was not able to redirect the pt back to the conversation topic. SW deemed the pt inappropriate for therapy at this time.
--- NOTE | 2019-07-07 18:36 | NUR ---
GPS/RN-NOTES PATIENT C/O 8/ LOWER BACK PAIN. NORCO 5/325MG 1 TAB P.O GIVEN PRN ORDER. WILL ENDORSE TO INCOMING NURSE FOR MONITORING AND CONTINUITY OF CARE.
[2019-07-07 20:54] VITALS: BP 115/65
[2019-07-07] MEDS: TEMAZEPAM 7.5 MG CAPSULE PO PRN (22:13)
[2019-07-08] MEDS: HYDROCODONE/APAP 5/325MG 1 EACH TABLET PO PRN ×3 (02:19→17:15)
--- NOTE | 2019-07-08 02:23 | NUR ---
GPS RN NOTE PT WOKE UP AT ABOUT 0218 RESTLESS, ANXIOUS AND COMPLAINING OF BACK PAIN. RATES PAIN LEVEL 8/10. NORCO 5-325MG 1 TAB GIVEN PO ORDERED. WILL CONTINUE TO MONITOR AND REASSESS.
[2019-07-08] MEDS: METHOCARBAMOL (750MG) 750 MG TABLET PO PRN ×2 (06:17→21:27)
--- NOTE | 2019-07-08 06:21 | NUR ---
GPS RN NOTE: PT WOKE UP THIS MORNING COMPLAINING OF BACK PAIN. RATES PAIN LEVEL 7/10. ROBAXIN 750MG 1TAB GIVEN PO ORDERED. WILL CONTINUE TO MONITOR AND ENDORSE TO AM SHIFT.
[2019-07-08 08:00] VITALS: BP 92/55
[2019-07-08] MEDS: PANTOPRAZOLE 40 MG TABLET.DR PO SCH (08:24)
[2019-07-08] MEDS: NICOTINE PATCH (14MG) 14 MG PATCH.TD24 TD SCH (08:44)
[2019-07-08] MEDS: GABAPENTIN 100 MG CAPSULE PO SCH ×3 (08:45→16:25)
[2019-07-08] MEDS: risperiDONE 1 MG TABLET PO SCH ×2 (08:45→21:27)
[2019-07-08] MEDS: ATENOLOL 50 MG TABLET PO SCH (08:46)
[2019-07-08] MEDS: BENZTROPINE MESYLATE (1 MG) 1 MG TABLET PO SCH ×3 (08:46→16:25)
--- NOTE | 2019-07-08 09:20 | NUR ---
GPS/RN-NOTES PATIENT C/O 11/20 LOWER BACK PAIN. NORCO 5/325MG 1 TAB P.O GIVEN PRN ORDER.
--- NOTE | 2019-07-08 12:35 | NUR ---
SNF Referral: JUSTO faxed a referral to [facility] with attn to Larry and CHERISE to the fax number: [phone].
[2019-07-08 16:00] VITALS: BP 142/95
--- NOTE | 2019-07-08 17:20 | NUR ---
GPS/RN-NOTES PATIENT C/O 11/20 LOWER BACK PAIN.REQUESTING FOR NORCO. NORCO 5/325MG 1 TAB P.O GIVEN PRN ORDER.
[2019-07-08 20:00] VITALS: BP 144/97
[2019-07-08] MEDS: TEMAZEPAM 7.5 MG CAPSULE PO PRN (22:37)
[2019-07-09] MEDS: HYDROCODONE/APAP 5/325MG 1 EACH TABLET PO PRN ×2 (05:52→18:17)
--- NOTE | 2019-07-09 05:57 | NUR ---
GPS RN NOTE: PT WOKE UP AT 0550 COMPLAINING OF LOWER BACK PAIN. RATES PAIN LEVEL 8/10. HYDROCODONE 5-325MG 1 TAB GIVEN PO ORDERED. PT CURRENTLY LAYING IN BED CALM, COOPERATIVE, NO S/S OF DISTRESS. WILL CONTINUE TO MONITOR AND ENDORSE TO AM NURSE.
[2019-07-09] MEDS: PANTOPRAZOLE 40 MG TABLET.DR PO SCH (07:53)
[2019-07-09 08:00] VITALS: BP 116/77
[2019-07-09] MEDS: NICOTINE PATCH (14MG) 14 MG PATCH.TD24 TD SCH (08:56)
[2019-07-09] MEDS: risperiDONE 1 MG TABLET PO SCH ×2 (08:56→21:36)
[2019-07-09] MEDS: BENZTROPINE MESYLATE (1 MG) 1 MG TABLET PO SCH ×3 (08:56→16:45)
[2019-07-09] MEDS: GABAPENTIN 100 MG CAPSULE PO SCH ×3 (08:56→16:45)
[2019-07-09] MEDS: ATENOLOL 50 MG TABLET PO SCH (08:57)
[2019-07-09] MEDS: METHOCARBAMOL (750MG) 750 MG TABLET PO PRN ×2 (13:45→22:33)
--- NOTE | 2019-07-09 13:46 | NUR ---
GPS/RN-NOTES PATIENT C/O MUSCLE SPASM ROBAXIN 750 MG 1 TAB P.O GIVEN PRN ORDER.
--- NOTE | 2019-07-09 14:00 | NUR ---
GPS/RN-NOTES PATIENT SLEEPING NO ACUTE DISTRESS NOTED.
[2019-07-09 16:00] VITALS: BP 112/79
--- NOTE | 2019-07-09 18:17 | NUR ---
GPS/RN-NOTES PATIENT C/O 10/20 LOWER BACK PAIN.REQUESTING FOR NORCO. NORCO 5/325MG 1 TAB P.O GIVEN PRN ORDER.
[2019-07-09 20:18] VITALS: BP 113/74
[2019-07-09] MEDS: TEMAZEPAM 7.5 MG CAPSULE PO PRN (22:33)
[2019-07-10] MEDS: HYDROCODONE/APAP 5/325MG 1 EACH TABLET PO PRN ×3 (01:02→17:20)
--- NOTE | 2019-07-10 01:04 | NUR ---
GPS RN NOTES: PT WOKE UP AT ABOUT 0058 ASKING FOR NORCO FOR LOWER BACK PAIN. RATES PAIN LEVEL 8/10. NORCO 5MG/325MG 1 TAB GIVEN PO.PT BACK IN BED. WILL CONTINUE TO MONITOR.
[2019-07-10] MEDS: LORAZEPAM 0.5 MG TABLET PO PRN (04:35)
--- NOTE | 2019-07-10 04:40 | NUR ---
GPS RN NOTE: PT WOKE UP AT 0430 COMPLAINING OF ANXIETY. ATIVAN 0.5MG 1 TAB GIVEN PO. WILL CONTINUE TO MONITOR.
--- NOTE | 2019-07-10 07:30 | NUR ---
RN Note Received patient AO x 3, able to responds all stimuli. Patient noticed anxiety behavior this morning. Respiratory even and unlabored with room air, no s/s of respiratory distress observed. Skin is warm to touch, clean/dry. Kept lower position of the bed with locked wheel for safety. Call light within reach, will continue to monitor.
[2019-07-10 08:00] VITALS: BP 97/70
[2019-07-10] MEDS: ATENOLOL 50 MG TABLET PO SCH (09:00)
[2019-07-10] MEDS: GABAPENTIN 100 MG CAPSULE PO SCH ×3 (10:00→16:13)
[2019-07-10] MEDS: BENZTROPINE MESYLATE (1 MG) 1 MG TABLET PO SCH ×3 (10:00→16:13)
[2019-07-10] MEDS: NICOTINE PATCH (14MG) 14 MG PATCH.TD24 TD SCH (10:00)
[2019-07-10] MEDS: PANTOPRAZOLE 40 MG TABLET.DR PO SCH (10:00)
[2019-07-10] MEDS: risperiDONE 1 MG TABLET PO SCH ×2 (10:01→20:54)
[2019-07-10 16:00] VITALS: BP 140/91
--- NOTE | 2019-07-10 18:15 | NUR ---
RN Note Patient is watching TV at activity room, given narco around 1700, denies pain or any discomfort at this time, took all due medications with compliance. No behavior observed during shit. Skin is warm to touch, clean/dry. Respiratory even and unlabored with room air. Remain lower position of the bed with locked wheel and bed alarm on for safety. Call light within reach, all needs met. Will endorse elevator conductor.
--- NOTE | 2019-07-10 19:30 | NUR ---
GPS RN NOTES RECEIVED PATIENT IN BED ALERT AND ORIENTED X 3, VERBALLY RESPONSIVE AND ABLE TO FOLLOW DIRECTIONS. BREATHING REGULAR AND UNLABORED ON ROOM AIR. DENIES ANY SUICIDAL/HOMICIDAL IDEATIONS AT THIS TIME. COMPLAINED OF BODY ACHES, VERBALIZED "I ACHE ALL OVER MY BODY". BED LOW AND LOCKED ON SEMI FOWLERS POSITION. WILL CONTINUE TO MONITOR FOR SAFETY AND BEHAVIOR.
[2019-07-10] MEDS: METHOCARBAMOL (750MG) 750 MG TABLET PO PRN (19:57)
--- NOTE | 2019-07-10 20:10 | NUR ---
GPS RN NOTES COMPLAINED OF BODY ACHES, VERBALIZED "I ACHE ALL OVER MY BODY". ROBAXIN 750MG GIVEN BY MOUTH. NON-PHARMACOLOGICAL INTERVENTIONS PROVIDED. VITAL SIGNS WNL. WILL CONTINUE TO MONITOR.
[2019-07-10 20:18] VITALS: BP 116/80
[2019-07-10 22:00] VITALS: BP 116/80
[2019-07-10] MEDS: TEMAZEPAM 7.5 MG CAPSULE PO PRN (22:11)
[2019-07-11] MEDS: HYDROCODONE/APAP 5/325MG 1 EACH TABLET PO PRN ×3 (00:29→16:39)
--- NOTE | 2019-07-11 00:30 | NUR ---
GPS RN NOTES COMPLAINED OF 7/10 LOWER BACK PAIN, NORCO 5/325 GIVEN BY MOUTH. NON-PHARMACOLOGICAL INTERVENTIONS PROVIDED. VITAL SIGNS WNL. WILL CONTINUE TO MONITOR.
[2019-07-11] MEDS: METHOCARBAMOL (750MG) 750 MG TABLET PO PRN ×2 (06:32→20:49)
[2019-07-11 08:00] VITALS: BP 123/81
--- NOTE | 2019-07-11 08:00 | NUR ---
GPS RN NOTES RECEIVED PATIENT IN BED AWAKE, ALERT AND ORIENTED X 3, VERBALLY RESPONSIVE AND ABLE TO FOLLOW DIRECTIONS. NO CARDIAC OR RESP DISTRESS NOTED. BREATHING REGULAR AND UNLABORED ON ROOM AIR. DENIES ANY SUICIDAL/HOMICIDAL IDEATIONS AT THIS TIME. DENIED ANY PAIN OR DISCOMFORT. SAFETY PRECUATIONS IN PLACE. BED LOW AND LOCKED ON SEMI FOWLERS POSITION. WILL CONTINUE TO MONITOR FOR SAFETY AND BEHAVIOR.
[2019-07-11] MEDS: ATENOLOL 50 MG TABLET PO SCH (08:28)
[2019-07-11] MEDS: risperiDONE 1 MG TABLET PO SCH ×2 (08:28→21:43)
[2019-07-11] MEDS: PANTOPRAZOLE 40 MG TABLET.DR PO SCH (08:28)
[2019-07-11] MEDS: BENZTROPINE MESYLATE (1 MG) 1 MG TABLET PO SCH ×3 (08:28→16:38)
[2019-07-11] MEDS: NICOTINE PATCH (14MG) 14 MG PATCH.TD24 TD SCH (08:28)
[2019-07-11] MEDS: GABAPENTIN 100 MG CAPSULE PO SCH ×3 (08:28→16:38)
--- NOTE | 2019-07-11 09:28 | NUR ---
SNF Contact: SW received a call from [facility] ([phone]) that stated that the pt was accepted to their facility.
--- NOTE | 2019-07-11 11:32 | NUR ---
SNF Referral: JUSTO faxed a referral to [facility] with attn to Constantine to the fax number: [phone].
[2019-07-11] MEDS ORDERED: risperiDONE 1 MG TABLET PO SCH (13:00)
[2019-07-11 16:00] VITALS: BP 102/74
--- NOTE | 2019-07-11 16:08 | NUR ---
Individual Note: In lieu of group therapy due to COVID 19, and informed him that he will not be going back to the assisted that he came from and instead would be going to the sister facility. SW explained that his previous facility will not accept him back due to his aggression. SW stated that he would assist in finding him alternative placement.
--- NOTE | 2019-07-11 16:39 | NUR ---
RN NOTE: PAIN PT C/O 11/20 GENERALIZED PAIN. REQUESTING NORCO PRN. NORCO 5/325MG PO PRN GIVEN.
[2019-07-11 20:19] VITALS: BP 99/70
[2019-07-11] MEDS: TEMAZEPAM 7.5 MG CAPSULE PO PRN (22:39)
[2019-07-12] MEDS: HYDROCODONE/APAP 5/325MG 1 EACH TABLET PO PRN ×2 (05:40→15:36)
[2019-07-12] MEDS: PANTOPRAZOLE 40 MG TABLET.DR PO SCH (07:53)
[2019-07-12 08:00] VITALS: BP 113/78
--- NOTE | 2019-07-12 08:23 | NUR ---
SNF Referral: SW faxed a referral to [facility] with attn to Rakel to the fax number: [phone].
[2019-07-12] MEDS: BENZTROPINE MESYLATE (1 MG) 1 MG TABLET PO SCH ×3 (08:45→17:18)
[2019-07-12] MEDS: NICOTINE PATCH (14MG) 14 MG PATCH.TD24 TD SCH (08:45)
[2019-07-12] MEDS: risperiDONE 1 MG TABLET PO SCH ×3 (08:45→21:35)
[2019-07-12] MEDS: GABAPENTIN 100 MG CAPSULE PO SCH ×3 (08:45→17:20)
[2019-07-12] MEDS: ATENOLOL 50 MG TABLET PO SCH (08:46)
--- NOTE | 2019-07-12 09:00 | NUR ---
RN NOTE- PT IN BED. QUIET. AMBULATORY, VERBALLY RESPONSIVE AND ABLE TO FOLLOW DIRECTIONS. BREATHING REGULAR AND UNLABORED ON ROOM AIR. DENIES ANY SUICIDAL/HOMICIDAL IDEATIONS AT THIS TIME. NO COMPLAINTS OF PAIN/DISCOMFORT REPORTED AT THIS TIME. BED LOW AND LOCKED ON SEMI FOWLERS POSITION. WILL CONTINUE TO MONITOR FOR SAFETY AND BEHAVIOR.
[2019-07-12] MEDS: METHOCARBAMOL (750MG) 750 MG TABLET PO PRN ×2 (10:45→20:01)
--- NOTE | 2019-07-12 10:46 | NUR ---
RN NOTE- PAIN/ PT C/O MUSCLE SPASMS LOWER BACK. ROBAXIN GIVEN AT THIS TIME.
--- NOTE | 2019-07-12 12:34 | NUR ---
Individual Note: In lieu of group therapy due to COVID 19, the SW discussed the pts discharge to a new facility by the end of the week. The pt stated that he wanted to be discharged soon. SW informed him that he would be leaving on Thursday. Pt appeared to be content with the information and stated that he felt prepared and understood that the reasoning behind the later discharge is due to the recent medications.
[2019-07-12 16:00] VITALS: BP 107/69
[2019-07-12 20:23] VITALS: BP 92/67
[2019-07-12] MEDS: TEMAZEPAM 7.5 MG CAPSULE PO PRN (22:57)
[2019-07-13] MEDS: HYDROCODONE/APAP 5/325MG 1 EACH TABLET PO PRN ×3 (01:24→18:29)
--- NOTE | 2019-07-13 05:48 | NUR ---
GPS RN NOTE: PT WAS MED SEEKING, NEEDY, ATTENTION SEEKING, RESTLESS, PACING HALLWAY, ASKING FOR MULTIPLE MEDICATIONS AT THE SAME TIME. THIS SHIFT PT HAD ROBAXIN 750MG 1 TAB PO FOR BACK, NORCO 5/325MG 1 TAB PO FOR GENERALIZED BODY, RESTORIL 7.5MG 1 CAPSULE FOR SLEEP, V/S WNL. WILL CONTINUE TO MONITOR AND ENDORSE TO AM SHIFT.
[2019-07-13] MEDS: PANTOPRAZOLE 40 MG TABLET.DR PO SCH (07:55)
[2019-07-13 08:00] VITALS: BP 112/75
[2019-07-13] MEDS: NICOTINE PATCH (14MG) 14 MG PATCH.TD24 TD SCH (08:05)
[2019-07-13] MEDS: risperiDONE 1 MG TABLET PO SCH ×3 (08:05→21:25)
[2019-07-13] MEDS: BENZTROPINE MESYLATE (1 MG) 1 MG TABLET PO SCH ×3 (08:05→16:01)
[2019-07-13] MEDS: GABAPENTIN 100 MG CAPSULE PO SCH ×3 (08:05→16:01)
[2019-07-13] MEDS: ATENOLOL 50 MG TABLET PO SCH (08:06)
--- NOTE | 2019-07-13 08:44 | NUR ---
GPS RN NOTE; RECEIVED PATIENT LYING IN BED, RESTING. PATIENT IS AOX2. ABLE TO MAKE NEEDS KNOWN. AMBULATORY WITH STEADY GAIT. WENT BACK TO SLEEP AFTER BREAKFAST. COMPLIANT WITH MEDICATION ADMINISTRATION AND PLAN OF CARE. DENIES SI/HI AND VAH. NO SIGNS OF DISTRESS OR AGITATION NOTED THIS AM. C/O OF PAIN 11/20. PAIN MEDICATIONS OFFERED ORDERED. NO BEHAVIORAL ISSUES NOTED. BED IN LOCKED POSITION, LOW, WITH 2 SIDE RAILS UP FOR SAFETY. WILL CONTINUE TO MONITOR Q15 FOR MOOD, SAFETY AND BEHAVIOR.
[2019-07-13] MEDS: METHOCARBAMOL (750MG) 750 MG TABLET PO PRN ×2 (08:47→17:29)
[2019-07-13] MEDS: LORAZEPAM 0.5 MG TABLET PO PRN ×2 (14:30→20:46)
[2019-07-13 16:00] VITALS: BP 131/94
--- NOTE | 2019-07-13 20:48 | NUR ---
GPS RN NOTE: AT 2044 PT COMPLAINED OF ANXIETY, RATES ANXIETY LEVEL 7/10 AND REQUESTED FOR ATIVAN. ATIVAN 0.5MG 1 TAB GIVEN PO ORDERED. PT CURRENTLY IN DAY-ROOM WATCHING TV. WILL CONTINUE TO MONITOR AND REASSESS.
[2019-07-13 20:58] VITALS: BP 102/73
[2019-07-13] MEDS: TEMAZEPAM 7.5 MG CAPSULE PO PRN (22:47)
[2019-07-14] MEDS: HYDROCODONE/APAP 5/325MG 1 EACH TABLET PO PRN ×3 (01:38→17:54)
--- NOTE | 2019-07-14 01:41 | NUR ---
GPS RN NOTE: AT 0135 PT WOKE UP COMPLAINING OF GENERALIZED BODY PAIN LEVEL OF 9/10, AND ASKING FOR NORCO. NORCO 5/325MG 1 TAB GIVEN PO ORDERED. PT CURRENTLY LAYING DOWN IN BED. NO S/S OF DISTRESS NOTED. WILL CONTINUE TO MONITOR AND ENDORSE TO AM NURSE.
[2019-07-14] MEDS: PANTOPRAZOLE 40 MG TABLET.DR PO SCH (07:58)
[2019-07-14 08:00] VITALS: BP 125/83
--- NOTE | 2019-07-14 08:35 | NUR ---
SNF Contact: JUSTO called [facility] ([phone]) and left a message for the Admissions Department stating that the pt will be discharged tomorrow to their facility.
[2019-07-14] MEDS: BENZTROPINE MESYLATE (1 MG) 1 MG TABLET PO SCH ×3 (09:03→16:55)
[2019-07-14] MEDS: GABAPENTIN 100 MG CAPSULE PO SCH ×3 (09:03→16:55)
[2019-07-14] MEDS: NICOTINE PATCH (14MG) 14 MG PATCH.TD24 TD SCH (09:04)
[2019-07-14] MEDS: risperiDONE 1 MG TABLET PO SCH ×3 (09:04→20:08)
[2019-07-14] MEDS: ATENOLOL 50 MG TABLET PO SCH (09:04)
[2019-07-14] MEDS: METHOCARBAMOL (750MG) 750 MG TABLET PO PRN ×2 (11:15→20:08)
--- NOTE | 2019-07-14 11:15 | NUR ---
GPS/RN-NOTES PATIENT C/O MUSCLE SPASM AND REQUESTING FOR ROBAXIN, ROBAXIN 750 MG 1 TAB P.O GIVEN PRN ORDER.
[2019-07-14] MEDS: LORAZEPAM 0.5 MG TABLET PO PRN (14:38)
--- NOTE | 2019-07-14 14:38 | NUR ---
GPS/RN-NOTES PATIENT REQUESTING ATIVAN FOR ANXIETY. ATIVAN 0.5MG P.O GIVEN PRN ORDER. WILL CONT. MONITORING FOR SAFETY AND BEHAVIOR.
--- NOTE | 2019-07-14 15:10 | NUR ---
GPS/RN-NOTES PATIENT WATCHING TV IN THE DAY ROOM,CALM NO ACUTE DISTRESS NOTED.
[2019-07-14 16:00] VITALS: BP 117/89
--- NOTE | 2019-07-14 16:24 | NUR ---
Individual Note: In lieu of group therapy due to COVID 19, SW met with the pt in the activities room. The SW discussed the pts discharge to the [facility] [place] [facility] the following day. SW stated that he has never been here before but that it is a sister facility to the one that he was in before. Pt agreed to the placement and stated that he felt ready to go there the next day.
--- NOTE | 2019-07-14 17:55 | NUR ---
GPS/RN-NOTES PATIENT C/O 11/20 LOWER BACK PAIN.REQUESTING FOR NORCO. NORCO 5/325MG 1 TAB P.O GIVEN PRN ORDER.
[2019-07-14 19:58] VITALS: BP 108/79
[2019-07-14] MEDS: TEMAZEPAM 7.5 MG CAPSULE PO PRN (22:43)
--- NOTE | 2019-07-14 23:06 | NUR ---
GPS RN NOTE, RECEIVED PATIENT AWAKE AND IN BED, NO S/S OR COMPLAINTS OF PAIN AT THIS TIME. PATIENT IS DISPLAYING NO S/S OF APPARENT DISTRESS AT THIS TIME. PATIENT BREATHING IS UNLABORED WITH EQUAL RISE AND FALL OF THE CHEST. PATIENT IS ALERT AND ORIENTED X 3 ON ROOM AIR WITH A SPO2 96%. PATIENT IS COMPLIANT WITH MEDICATIONS, MEDICATION SEEKING, ANXIOUS AT TIMES, AND COOPERATIVE. PATIENT DENIES SUICIDAL AND HOMICIDAL IDEATIONS AT THIS TIME. PATIENT ASSISTED WITH TURNING AND REPOSITIONING Q2HR AND PRN FOR COMFORT AND CIRCULATION. PATIENT HAS NO NEEDS AT THIS TIME. PATIENT EDUCATED ON THE USE OF THE CALL [place]. PATIENT BED SIDE RAILS UP X 2 FOR SAFETY. PATIENT BED IS LOCKED, LOW, WITH BED ALARM ON. WILL CONTINUE TO MONITOR THIS PATIENT Q15 MINUTES WITH THE HELP OF STAFF TO MAINTAIN SAFETY.
[2019-07-15] MEDS: HYDROCODONE/APAP 5/325MG 1 EACH TABLET PO PRN ×2 (00:24→10:44)
--- NOTE | 2019-07-15 00:24 | NUR ---
GPS RN NOTE, PATIENT HAS A COMPLAINT OF LOWER BACK PAIN AT 8 OUT 10 ON THE PAIN SCALE AND IS REQUESTING NORCO AT THIS TIME. PATIENT VITAL SIGNS ARE STABLE. GAVE NORCO 5 - 325 1 TAB PO Q6HR PRN ORDERED. WILL REASSESS FOR PAIN AND I WILL CONTINUE TO MONITOR THIS PATIENT.
[2019-07-15 08:00] VITALS: BP 100/65
[2019-07-15 09:00] VITALS: BP 100/65
[2019-07-15] MEDS: ATENOLOL 50 MG TABLET PO SCH (09:00)
[2019-07-15] MEDS: NICOTINE PATCH (14MG) 14 MG PATCH.TD24 TD SCH (09:06)
[2019-07-15] MEDS: BENZTROPINE MESYLATE (1 MG) 1 MG TABLET PO SCH ×2 (09:06→12:13)
[2019-07-15] MEDS: risperiDONE 1 MG TABLET PO SCH ×2 (09:06→12:13)
[2019-07-15] MEDS: GABAPENTIN 100 MG CAPSULE PO SCH ×2 (09:06→12:13)
[2019-07-15] MEDS: PANTOPRAZOLE 40 MG TABLET.DR PO SCH (09:06)
--- NOTE | 2019-07-15 09:13 | NUR ---
DISCHARGE NOTE: Pt will be discharging at 3:00pm via [facility] to [facility] [address] [facility] [address] . Pt has no family to notify. Pts mood si euthymic with congruent affect. Pt denied visual/auditory hallucinations and denied suicidal/homicidal ideation. Pt will address his substance use with Psychiatrist: Dr. Stephanie Hardin [address] [address], [place] [address] [phone] and [employer]: Dr. Lazaro Dwyer [id number] [address] . The multidisciplinary exit care form was done, printed, signed, and given to the patient.
--- NOTE | 2019-07-15 10:45 | NUR ---
GPS/RN-NOTES PATIENT C/O 10/20 LOWER BACK PAIN.REQUESTING FOR NORCO. NORCO 5/325MG 1 TAB P.O GIVEN PRN ORDER.
[2019-07-15] MEDS: METHOCARBAMOL (750MG) 750 MG TABLET PO PRN (12:57)
--- NOTE | 2019-07-15 12:58 | NUR ---
GPS/RN-NOTES PATIENT C/O MUSCLE SPASM AND REQUESTING FOR ROBAXIN, ROBAXIN 750 MG 1 TAB P.O GIVEN PRN ORDER.
--- NOTE | 2019-07-15 15:15 | NUR ---
GPS /RN-NOTES PATIENT DISCHARGE TO [facility] (SNF) TODAY. DR. WATTS ( COVERING FOR DR. ROLDAN) AND RICHARD WHITTAKER AWARE AND AGREES OF THE DISCHARGE WITH ORDERS. PATIENT DENIES SI/HI, VISUAL/AUDITORY HALLUCINATIONS AT THE TIME OF DISCHARGE. ALL DISCHARGE MEDICATIONS WAS REVIEWED WITH THE PATIENT WITH UNDERSTANDING. ALL DISCHARGE PAPERS WAS SIGN BY THE PATIENT.REPORT WAS GIVEN TO ASHIA ( [facility] STAFF). PATIENT LEFT THE UNIT ALERT ORIENTED X3 AMBULATORY STEADY GAIT.LEATHER SHAVER BY AMBULANCE VIA GURNEY WITH TWO STAFF ASSIST. ALL BELONGINGS WAS GIVEN BACK TO THE PATIENT.CALLED PATIENT'S BROTHER ROJELIO SANTOYO AT [phone] BUT NO ANSWER.
== END 2019-07-15 15:15 | DRG 885 ==
LOC: ER 19:05 → GPS 20:51
PROVIDERS: ADMIT Psychiatry & Neurology Psychiatry; ATTEND Registered Nurse
DX: F25.0 Schizoaffective disorder, bipolar type (principal); N18.9 Chronic kidney disease, unspecified; I12.9 Hypertensive chronic kidney disease with stage 1 through stage 4 chronic kidney disease, or unspecified chronic kidney disease; J44.9 Chronic obstructive pulmonary disease, unspecified; G89.4 Chronic pain syndrome; Z79.899 Other long term (current) drug therapy; Z83.3 Family history of diabetes mellitus; E87.6 Hypokalemia; M40.56 Lordosis, unspecified, lumbar region; Z98.890 Other specified postprocedural states; F90.9 Attention-deficit hyperactivity disorder, unspecified type; F32.9 Major depressive disorder, single episode, unspecified; F17.200 Nicotine dependence, unspecified, uncomplicated; F19.10 Other psychoactive substance abuse, uncomplicated; R73.9 Hyperglycemia, unspecified
CPT/HCPCS: 36415; 80048-TC; 80053-TC; 80061-TC; 80076-TC; 80305; 81000-TC; 82962-TC; 84443-TC; 85025-TC; 87081-TC; 93307-TC; G0480